=== PATIENT | female | born 1960 | race Caucasian/White ===

== ENCOUNTER 2024-06-14 12:09 | Outpatient (OUT) | payer MEDICARE, SELFPAY ==
--- NOTE | 2024-06-14 12:24 | ECG_ITS ---
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
--- NOTE | 2024-06-14 13:15 | P.GSHP_ITS ---
History of Present Illness History of Present Illness Chief complaint: LEFT ETD Narrative: Ms. Micheline German is a pleasant 64-year-old female who presents to presurgical testing for left eustachian tube dysfunction. She reports pressure to the left ear she is scheduled for left myringotomy with insertion of ventilation tube, T-tube with Dr. Dupont on June 28, 2023 Review of Systems ROS Narrative REVIEW OF SYSTEMS: Negative except as stated in HPI, ten or more systems reviewed. Constitutional: No fever, chills, weakness ENT: No sore throat or epistaxis complaints of pressure and pain to the left ear Cardiovascular: No edema, chest pain, palpitations, or activity intolerance Respiratory: No shortness of breath, cough, or wheezing Musculoskeletal: No joint pain or swelling Gastrointestinal: No abdominal pain, constipation, diarrhea, or vomiting Genitourinary: No dysuria or hematuria Neurological: No numbness, tingling, weakness, or headache Psychiatric: No mood changes PFSH PFSH Medical History (Updated 06/14/24 @ 13:18 by Jelena Milligan) Thoracic outlet syndrome ?G54.0 - Brachial plexus disorders (ICD-10) Fusion of spine ?M43.20 - Fusion of spine, site unspecified (ICD-10) Neck pain ?M54.2 - Cervicalgia (ICD-10) DDD (degenerative disc disease) Insomnia ?G47.00 - Insomnia, unspecified (ICD-10) Depression ?F32.A - Depression, unspecified (ICD-10) Anxiety ?F41.9 - Anxiety disorder, unspecified (ICD-10) Snores ?R06.83 - Snoring (ICD-10) Bronchitis ?J40 - Bronchitis, not specified as acute or chronic (ICD-10) Asthma ?J45.909 - Unspecified asthma, uncomplicated (ICD-10) Migraine ?G43.909 - Migraine, unspecified, not intractable, without status migrainosus (ICD-10) Acute otitis media ?H66.90 - Otitis media, unspecified, unspecified ear (ICD-10) Seasonal allergies ?J30.2 - Other seasonal allergic rhinitis (ICD-10) Heartburn ?R12 - Heartburn (ICD-10) GERD (gastroesophageal reflux disease) ?K21.9 - Gastro-esophageal reflux disease without esophagitis (ICD-10) Hypertension ?I10 - Essential (primary) hypertension (ICD-10) High cholesterol ?E78.00 - Pure hypercholesterolemia, unspecified (ICD-10) Diabetes ?E11.9 - Type 2 diabetes mellitus without complications (ICD-10) Delayed recovery from anesthesia Surgical History (Updated 06/14/24 @ 13:02 by Jelena Milligan) History of eye surgery ?Z98.890 - Other specified postprocedural states (ICD-10) History of esophagogastroduodenoscopy (EGD) ?Z98.890 - Other specified postprocedural states (ICD-10) History of colonoscopy ?Z98.890 - Other specified postprocedural states (ICD-10) History of cholecystectomy ?Z90.49 - Acquired absence of other specified parts of digestive tract (ICD- 10) History of foot surgery ?Z98.890 - Other specified postprocedural states (ICD-10) History of tonsillectomy ?Z90.89 - Acquired absence of other organs (ICD-10) History of myringotomy ?Z98.890 - Other specified postprocedural states (ICD-10) Family History (Updated 06/14/24 @ 12:53 by Jelena Milligan) Other Family history of Alzheimer's disease Family history of COPD (chronic obstructive pulmonary disease) Family history of cancer Family history of coronary artery disease Family history of diabetes mellitus Family history of heart disease Family history of hypertension Family history of myocardial infarction Family history of stroke Family history of uterine cancer Meds Home Medications and Allergies Home Medications ?Medication ?Instructions ?Recorded ?Confirmed ?Type albuterol sulfate 90 mcg/actuation 1 puff inhalation Q4H PRN 06/14/24 06/14/24 History aerosol inhaler shortness of breath or wheezing duloxetine 60 mg capsule,delayed 60 mg PO DAILY 06/14/24 06/14/24 History release eszopiclone 3 mg tablet 3 mg PO BEDTIME 06/14/24 06/14/24 History fluticasone 500 mcg-salmeterol 50 1 inh inhalation Q12H PRN allergic 06/14/24 06/14/24 History mcg/dose blistr powdr for symptoms inhalation gabapentin 600 mg tablet 600 mg PO QID 06/14/24 06/14/24 History metformin 850 mg tablet 850 mg PO BEDTIME 06/14/24 06/14/24 History montelukast 10 mg tablet 10 mg PO DAILY 06/14/24 06/14/24 History omeprazole 40 mg capsule,delayed 40 mg PO DAILY 06/14/24 06/14/24 History release prazosin 1 mg capsule 2 mg PO BEDTIME 06/14/24 06/14/24 History propranolol 20 mg tablet 20 mg PO DAILY 06/14/24 06/14/24 History simvastatin 20 mg tablet 20 mg PO BEDTIME 06/14/24 06/14/24 History Allergies Allergy/AdvReac Type Severity Reaction Status Date / Time diclofenac (From Arthrotec) Allergy Intermediate syncope Verified 06/14/24 12:41 misoprostol (From Arthrotec) Allergy Intermediate syncope Verified 06/14/24 12:41 tizanidine (From Zanaflex) Allergy Intermediate syncope Verified 06/14/24 12:41 tramadol (From Ultram) Allergy Intermediate sycope Verified 06/14/24 12:41 Exam Narrative Exam Narrative: Nurses note and vital signs reviewed and patient is not hypoxic. General: The patient appears well and in no apparent distress. Patient is resting comfortably on cart. Skin: Warm, dry, no pallor noted. There is no rash noted. Head: Normocephalic, atraumatic Eye: Normal conjunctiva, no drainage, EOMI. PERRL Ears, Nose, Mouth, and Throat: oral mucosa is moist. Nares patent. Mouth without vesicles. Ear canals patent. Tympanic membrane without Erythema, notable left tympanic membrane retraction and effusion. Cardiovascular: Regular Rate and Rhythm Respiratory: Patient is in no distress, no accessory muscle use, lungs are clear to auscultation, no wheezing, rales or rhonchi Back: non-tender, no CVA tenderness bilaterally to percussion. GI: Normal bowel sounds, no tenderness to palpation, no masses appreciated. No rebound, guarding, or rigidity noted. Musculoskeletal: The patient has no evidence of calf tenderness, no pitting edema, symmetrical pulses noted bilaterally Neurological: A&O x4, normal speech Psychiatric: Cooperative Assessment and Plan Assessment and Plan (1) Dysfunction of left eustachian tube: Plan Plan is for left migraine got to me with insertion of ventilation tubes, T-tube with Dr. Dupont on June 28, 2023
[2024-06-14 13:41] LABS: Basophils Absolute Auto 0.1 10^3/uL (0.0-0.1); Basophils Percent Auto 0.9 % (0.2-2.0); Eosinophils Absolute Auto 0.4 10^3/uL (0.0-0.7); Eosinophils Percent Auto 5.5 % (0.9-7.0); Hematocrit 41.1 % (36.0-48.0); Hemoglobin 13.3 g/dL (12.0-16.0); Immature Granulocytes Abs Auto 0.01 10^3/uL (0.00-0.03); Immature Granulocytes Pct Auto 0.1 % (0.0-0.5); Lymphocytes Absolute Auto 2.8 10^3/uL (1.2-3.8); Lymphocytes Percent Auto 37.3 % (20.5-60.0); Mean Corpuscular HGB Conc 32.4 g/dL (29.9-35.2); Mean Corpuscular Hemoglobin 29.1 pg (26.7-34.0); Mean Corpuscular Volume 89.9 fL (81.0-99.0); Mean Platelet Volume 10.5 fL (9.5-13.5); Monocytes Absolute Auto 0.6 10^3/uL (0.3-0.8); Monocytes Percent Auto 7.8 % (1.7-12.0); Neutrophils Absolute Auto 3.6 10^3/uL (1.4-6.5); Neutrophils Percent Auto 48.4 % (43.0-75.0); Platelet Count 204 10^3/uL (150-450); Red Blood Count 4.57 10^6/uL (4.20-5.40); Red Cell Distribution Width 13.8 % (11.0-15.0); White Blood Count 7.4 10^3/uL (4.0-11.0)
[2024-06-14 13:58] LABS: BUN Creatinine Ratio 13.9; Calcium 9.3 mg/dL (8.5-10.1); Carbon Dioxide 29.3 mmol/L (21.0-32.0); Chloride 106 mmol/L (98-107); Estimated GFR (African America >60 (>=60 mL/min/1.73m^2); Estimated GFR (Non-African Ame >60 (>=60 mL/min/1.73m^2); Glucose 96 mg/dL (74-106); Potassium 4.3 mmol/L (3.5-5.1); Sodium 142 mmol/L (136-145)
== END 2024-06-14 12:10 | disposition home or self-care (01) ==
LOC: PST 12:14
PROVIDERS: Family Provider Internal Medicine; Visit Provider Otolaryngology
DX: Z01.810 Encounter for preprocedural cardiovascular examination (principal); Z01.812 Encounter for preprocedural laboratory examination; Z01.818 Encounter for other preprocedural examination; H69.92 Unspecified Eustachian tube disorder, left ear
CPT/HCPCS: 80048; 85025; 93005; G0463

== ENCOUNTER 2024-07-12 06:36 | Day surgery (SDC) | payer MEDICARE, SELFPAY ==
[2024-06-14 12:50] VITALS: BP 121/82; PULSE 69; TEMP 36.3; O2SAT 96; BMI 31.2
[2024-07-12] VITALS (12 sets, daily range): BP systolic 115–133; BP diastolic 85–99; PULSE 62–75; TEMP 36.2–36.4; O2SAT 92–96; BMI 31.2
--- NOTE | 2024-07-12 | OP_ITS ---
OPERATION DATE: 07/12/2024 SURGEON: Haylee Dupont M.D. PREOPERATIVE DIAGNOSIS: Left eustachian tube dysfunction. POSTOPERATIVE DIAGNOSIS: Left eustachian tube dysfunction. PROCEDURE: Left myringotomy and tube with microdissection, placement of a T- tube. ANESTHESIA: General LMA. COMPLICATIONS: None. FINDINGS: Left serous effusion. INDICATIONS: This 64-year-old woman presented with otitis media with effusion, unresponsive to aggressive medical management. PROCEDURE: Patient identified in the holding area and taken back to the OR where she was placed in the supine position. After induction of general anesthesia, the left ear was approached with the otomicroscope. Cerumen was cleaned from the canal using a cerumen curette and an anterior radial myringotomy was performed. A modified Mitul?s T-tube was folded, inserted through the myringotomy and opened in the middle ear using microdissection. Patient was then awakened and taken to the recovery room in good condition. HEMAL
--- OUTSIDE RECORDS SUMMARY | 2024-07-12 06:40 | XMS_ITS | CCD ---
Author Organization [facility] Care Team Providers Care Composition Siding Worker Name Role Phone Gibson, Meek W Unavailable Unavailable Garret, Meek W Unavailable Unavailable No Doctor Assigned, Nodr Unavailable Unavail able TIMMIS, DR TOMPKINS Consulting Unavailable TIMMIS, DR TOMPKINS Admitting Unavailable TIMMIS, DR TOMPKINS Attending Unavailable JUANCARLOS, JAMAL Consulting Unavailable TIMMIS, DR TOMPKINS Consulting Unavailable TIMMIS, DR TOMPKINS Admitting Unavailable TIMMIS, DR TOMPKINS Attending Unavailable ZIEBER, DR NYDIA Méndez Consulting Unavailable ROTHMANYUNI Consulting Unavailable JUANCARLOS, JAMAL Consulting Unavailable TIMMIS, DR TOMPKINS Consulting Unavailable TIMMIS, DR TOMPKINS Admitting Unavailable TIMMIS, DR TOMPKINS Attending Unavailable ESTHER FLOWERS Consulting Unavailable JUANCARLOS, JAMAL Consulting Unavailable PROVIDER, UNKNOWN Attending Unavailable PROVIDER, UNKNOWN Admitting Unavailable DASH REED Referring Unavailable Arian Bello MD, [facility] Primary Care Provider Ame Spaulding Primary Care Physician UnavailAme Liu Unavailable Unavailable Steven Herring Unavailable Arian Bello MD, [facility] Primary Care Provider Arian Bello MD, [facility] Primary Care Provider KATINA HOWARD Referring Unavailable KHORSAND JUANCARLOS, JAMAL Primary Care UnavailKATINA Brown Referring Unavailable KHORSAND JUANCARLOS, JAMAL Primary Care UnavailPAVAN Patricia Referring Unavailable STEVEN PINEDO Primary Care Unavailable YANET AHMADI Attending Unavailable STEVEN PINEDO Primary Care Unavailable DILAN SALCEDO Referring Unavailable KHORSAND JUANCARLOS, JAMAL Primary Care UnavailDILAN Cheney Referring Unavailable KHORSAND JUANCARLOS, JAMAL Primary Care UnavailPAVAN Patricia Attending Unavailable ROGELIO, PAVAN Attending Unavailable ROGELIO, PAVAN Attending Unavailable ROGELIO, PAVAN Attending Unavailable ROGELIO, PAVAN Attending Unavailable ARY, TIMUR Referring Unavailable STEVEN PINEDO Primary Care Unavailable Ary PROTOCOL MANAGER, Timur Unavailable Perfecto ARMSTRONG, Tee Unavailable TIMMIS, LEDA H Attending Unavailable TIMMIS, LEDA H Attending Unavailable TEE GROVE Referring Unavailable TIMMIS, LEDA H Attending Unavailable ARY, TIMUR Referring Unavailable TIMMIS, LEDA H Attending Unavailable TIMMIS, LEDA H Attending Unavailable TIMMIS, LEDA H Attending Unavailable Allergies Allergy Classification Reported Allergen(s) Allergy Type Date of Onset Reaction(s) Facility (3 sources) tiZANidine; Translations: [facility] traMADol; Translations: [Ultram] [facility]) Glutaral Drug Allergy [facility] Repository (20 sources) Diclofenac / miSOPROStol; Translations: [DICLOFENAC-MIS OPROSTOL] Drug Allergy 1 Other (See Comments) [facility] (20 sources) tiZANidine; Translations: [TIZANIDINE] Drug Allergy 1 Other (See Comments), Nausea And Vomiting, GI intolerance [facility] (20 sources) tiZANidine; Translations: [TIZANIDINE HCL] Drug Allergy 2 Other (See Comments) [facility] Repository (20 sources) traMADol; Translations: [TRAMADOL] Drug Allergy 1 Other (See Comments), Anaphylaxis [facility] [place] Repository (1 source) Diclofenac / miSOPROStol; Translations: [Arthrotec 50] Drug Allergy [facility] [employer] (2 sources) Diclofenac / miSOPROStol Drug Allergy Unknown [facility] Other Medications Current Medications Medication Drug Class(es) Dates Sig (Normalized) Sig (Original) Advair Diskus 500-50 MCG/DOSE (2 sources) take 1 puff(s) by inhalation twice daily Advair Diskus 500-50 MCG/DOSE 1 puff Inhalation Twice a day Active albuterol 0.83 mg/ml inhalation solution (7 sources) beta2-Adrenergic Agonist Start: 12-05-2021 albuterol (PROVENTIL) (2.5 MG/3ML) 0.083% nebulizer solution take 2 puff(s) by in halation every four hours as needed Ventolin HFA 108 (90 Base) MCG/ACT 2 puffs as needed Inhalation every 4 hrs Active ALPRAZolam 0.25 mg oral tablet (4 sources) Benzodiazepine take 1 tablet by mouth every eight hours Xanax 0.25 MG 1 tablet Orally Three times a day for 30 Not-Taking ALPRAZolam 0.25 MG (Schedule IV Drug) TAKE 1/2 TO 1 TABLET BY MOUTH EVERY 6-8 HOURS NEEDED Oral for 8 Active cyclobenzaprine hydrochloride 10 mg oral tablet (2 sources) Muscle Relaxant Flexeril 10mg 1 Oral 3 times daily Active diclofenac sodium 0.01 mg/mg topical gel (5 sources) Nonsteroidal Anti-inflammatory Drug Start: 11-23-19 diclofenac sodium (VOLTAREN) 1 % GEL APPLY 4 GRAMS TO AFFECTED AREA 4 TIMES A DAY 0 11/22/2021 Active doxepin hydrochloride 50 mg oral capsule (7 sources) Tricyclic Antidepressant Start: 11-25-19 22 take 1 capsule by mouth at bedtime doxepin (SINEQUAN) 50 MG capsule TAKE 1 CAPSULE BY MOUTH AT BEDTIME 0 11/24/2021 Active take 1-3 capsules by mouth at be dtime Doxepin HCl 25 MG TAKE 1 TO 3 CAPSULES BY MOUTH AT BEDTIME Oral for 30 Active DULoxetine 60 mg delayed release oral capsule (20 sources) Serotonin and Norepinephrine Reuptake Inhibitor take 1 capsule by mouth in the morning DULoxetine (Cymbalta) [address] capsule Take 60 mg by mouth in the morning. Active take 1 capsule by mouth twice da tawana DULoxetine HCl 60 MG TAKE ONE CAPSULE BY MOUTH TWICE A DAY Oral for 30 Active take 1 tablet by mouth once jorge y Cymbalta oral take 1 tablet by oral route daily (unsure of dose) eszopiclone 3 mg oral tablet (20 sources) Start: 12-17-2023 take 1 tablet by mouth at bedtime eszopiclone (Lunesta) 3 MG tablet Take 3 mg by mouth at bedtime 12/17/2023 Active fluticasone propionate 0.05 mg/actuat metered dose nasal spray (15 sources) Corticosteroid Start: 06-27-2024 fluticasone (Flonase) 50 MCG/ACT nasal spray Indications: ETD (Eustachian tube dysfunction), left 2 sprays on left BID. Shake gently. Before first use, prime pump. After use, clean tip and replace cap. 48 g 3 06/27/2024 Active Start: 06-27-2024 fluticasone (F lonase) 50 MCG/ACT nasal spray Indications: ETD (Eustachian tube dysfunction), left 2 sprays on left BID. Shake gently. Before first use, prime pump. After use, clean tip and replace cap. 48 g 3 06/27/2024 Active Start: 04-11-2024 End: 06-27-2024 fluticasone (Flonase) 50 MCG /ACT nasal spray Indications: ETD (Eustachian tube dysfunction), left 2 sprays to left nose twice daily. Shake gently. Before first use, prime pump. After use, clean tip and replace cap. 48 g 3 04/11/2024 06/27/2024 Discontinued Fluticasone Prop ionate 50 MCG/ACT SHAKE LQ AND U 2 SPRAYS IEN QD Nasal for 30 Active 60 actuat fluticasone propionate 0.5 mg/actuat / salmeterol 0.05 mg/actuat dry powder inhaler (20 sources) Corticosteroid, beta2-Adrenergic Agonist take 1 puff(s) by inhalation in the morning Fluticasone-Salmeterol 500-50 MCG/ACT aerosol powder Inhale 1 puff in the morning. Active Fluticasone-Salm eterol (Advair Diskus) 500-50 MCG/ACT aerosol powder 1 puff every 12 (twelve) hours Active folic acid 0.8 mg / vitamin b12 1 mg disintegrating oral tablet (20 sources) Vitamin B12 take 2 tablets by mouth in the morning Cobalamin Combinations (Vitamin P96-Kduyw Acid) 500-400 MCG tablet Take 2 tablets by mouth in the morning. Active take 1 tablet by mouth once jorge y vitamin B12 500 mcg-folic acid 400 mcg tablet take 1 tablet by oral route daily gabapentin 600 mg oral tablet (20 sources) Anti-epileptic Agent Start: 07-01-2022 take 1 tablet by mouth every eight hours Gabapentin 600 MG 1 tablet Orally three times a day for 30 days Jun, Active take 1 tablet by teetee th twice daily, then take 2 tablets by mouth at bedtime Gabapentin 600 MG TAKE 1 TABLET BY MOUTH TWICE A DAY AND 2 AT BEDTIME Oral for 30 Active take 1 tablet by mouth three edelmira es daily gabapentin oral 500 mg oral tablet take 1 tablet (600 mg) by oral route 3 times per day hydroCHLOROthiazide 12.5 mg oral tablet (6 sources) Thiazide Diuretic Start: 11-23-2021 take 1 tablet by mouth once daily in the morning hydroCHLOROthiazide (HYDRODIURIL) 12.5 MG tablet TAKE 1 TABLET BY MOUTH EVERY DAY IN THE MORNING FOR 90 DAYS 0 11/23/2021 Active metFORMIN hydrochloride 850 mg oral tablet (20 sources) Biguanide Start: 12-02-2021 take 1 tablet by mouth once daily at mealtime metFORMIN (GLUCOPHAGE) 850 MG tablet TAKE 1 TABLET BY MOUTH EVERY DAY WITH A MEAL FOR 90 DAYS 0 12/02/2021 Active take 1 tablet by mouth once jorge y metformin 500 mg tablet take 1 tablet (500 mg) by oral route daily milnacipran hydrochloride 50 mg oral tablet (7 sources) Serotonin and Norepinephrine Reuptake Inhibitor take 1 tablet by mouth once daily milnacipran HCl (SAVELLA) 50 MG TABS Take 50 mg by mouth daily. 0 Active take 1 tablet by mouth at bedtim e Savella 100 MG TAKE 1 TABLET BY MOUTH AT BEDTIME Oral for 30 Active montelukast 10 mg oral tablet (20 sources) Leukotriene Receptor Antagonist Start: 11-16-2021 take 1 tablet by mouth once daily montelukast (SINGULAIR) 10 MG tablet TAKE 1 TABLET BY MOUTH EVERY DAY 0 11/16/2021 Active MULTIPLE VITAMINS PO (20 sources) take 1 tablet by mouth once daily MULTIPLE VITAMINS PO Take 1 tablet by mouth 1 (one) time each day at the same time Active ofloxacin 3 mg/ml otic solution (7 sources) Quinolone Antimicrobial Start: 04-04-2024 End: 04-11-2024 ofloxacin (Floxin) 0.3 % otic solution Indications: ETD (Eustachian tube dysfunction), left Administer 6 drops into the left ear in the morning and 6 drops before bedtime. Do all this for 7 days. 10 mL 04/04/2024 04/11/2024 Active Start: 01-09-2024 End: 01-16-2024 ofloxacin (Floxin) 0.3 % dedrick c solution Indications: Acute otalgia, left Administer 4 drops into affected ear(s) in the morning and 4 drops in the evening and 4 drops before bedtime. Do all this for 7 days. 10 mL 01/09/2024 01/16/2024 Active omeprazole 40 mg delayed release oral capsule (20 sources) Proton Pump Inhibitor Start: 11-18-2021 omeprazole (PRILOSEC) 40 MG delayed release capsule OXcarbazepine 300 mg oral tablet (2 sources) Anti-epileptic Agent take 1 tablet by mouth twice daily OXcarbazepine 300 MG TAKE 1 TABLET BY MOUTH TWICE A DAY Oral for 30 Active prazosin 1 mg oral capsule (20 sources) alpha-Adrenergic Marybeth Start: 12-09-2023 take 1 capsule by mouth at bedtime prazosin (Minipress) 1 MG capsule Take 1 mg by mouth at bedtime 12/09/2023 Active take 1 capsule by mouth at bedti me Prazosin HCl 2 MG TAKE ONE CAPSULE BY MOUTH AT BEDTIME Oral for 30 Active predniSONE 20 mg oral tablet (2 sources) Start: 06-27-2024 End: 06-29-2024 take 1 tablet by mouth in the morning predniSONE (Deltasone) 20 MG tablet Indications: ETD (Eustachian tube dysfunction), left Take 1 tablet (20 mg) by mouth in the morning and 1 tablet (20 mg) before bedtime. Do all this for 2 days. 4 tablet 06/27/2024 06/29/2024 Active propranolol hydrochloride 20 mg oral tablet (20 sources) beta-Adrenergi c Marybeth take 10 mg by mouth in the morning propranolol (Inderal) 20 MG tablet Take 10 mg by mouth in the morning and 10 mg before bedtime. Active take 1 tablet by mouth twice jesse ly propranolol (INDERAL) 20 MG tablet Take 20 mg by mouth 2 times daily. 0 Active take 0.5 tablet by mouth twice d aily Propranolol HCl 20 MG 1/2 tablet Orally Twice a day Active QUEtiapine 100 mg oral tablet (4 sources) Atypical Antipsychotic take 1 tablet by mouth every twenty-four hours SEROquel 100 MG 1 tablet at bedtime Orally Once a day Active simvastatin 20 mg oral tablet (20 sources) HMG-CoA Reductase Inhibitor Start: 11-19-19 simvastatin (ZOCOR) 20 MG tablet take 1 tablet by mouth once jorge y simvastatin oral take 1 tablet by oral route daily (unsure of dose) topiramate 25 mg oral tablet (7 sources) take 1 tablet by teetee th three times daily topiramate (TOPAMAX) 25 MG tablet Take 25 mg by mouth 3 times daily. 0 Active take 1 capsule by mouth at bedti me Topiramate 25 MG TAKE ONE CAPSULE BY MOUTH AT BEDTIME Oral for 30 Active Completed/Discontinued Medications Medication Drug Class(es) Dates Sig (Normalized) Sig (Original) calcium carbonate 1500 mg oral tablet (1 source) take 1 tablet by mouth once daily Calcium 600 mg calcium (1,500 mg) tablet take 1 tablet by oral route daily gadoteridol (PROHANCE) injection 14 mL (1 source) Start: 10-01-2022 End: 10-01-2022 gadoteridol (PROHANCE) injection 14 mL Problems Active Problems Problem Classification Problem Date Documented Date Episodic/Chronic Allergic reactions (8 sources) Allergic bronchopulmonary aspergillosis; Translations: [Allergic bronchopulmonary aspergillosis] Onset: 05-30-2024 05-30-2024 Chronic Anxiety disorders (20 sources) Other specified anxiety disorders; Translations: [Anxiety] Onset: 12-25-2020 12-16-2021 Chronic Asthma (20 sources) Unspecified asthma, uncomplicated; Translations: [Mild persistent asthma] Onset: 04-11-2013 12-16-2021 Chronic Diabetes mellitus without complication (20 sources) Type 2 diabetes mellitus; Translations: [Type 2 diabetes mellitus without complications] Onset: 01-09-2024 01-09-2024 Chronic Diabetes mellitus without complication (1 source) Prediabetes Episodic Disorders of lipid metabolism (20 sources) Pure hypercholesterolemia, unspecified; Translations: [Hyperlipidemia] Onset: 06-09-2010 12-16-2021 Chronic Esophageal disorders (20 sources) Gastroesophageal reflux disease; Translations: [Gastro-esophageal reflux disease without esophagitis] Onset: 06-09-2010 12-16-2021 Chronic Esophageal disorders (2 sources) Esophagitis; Translations: [Esophagitis, other specified type] Episodic Essential hypertension (20 sources) Essential (primary) hypertension; Translations: [Hypertensive disorder] Onset: 12-17-2020 Chronic Heart valve disorders (20 sources) Mitral valve prolapse; Translations: [Nonrheumatic mitral (valve) prolapse] Onset: 06-09-2010 12-16-2021 Chronic Mood disorders (20 sources) Severe major depression, single episode; Translations: [Major depressive disorder, single episode, severe without psychotic features] Onset: 06-09-2010 12-16-2021 Chronic Osteoarthritis (20 sources) Osteoarthritis; Translations: [Unspecified osteoarthritis, unspecified site] Onset: 12-16-2021 12-16-2021 Chronic Osteoporosis (20 sources) Osteoporosis; Translations: [Age-related osteoporosis without current pathological fracture] Onset: 12-16-2021 12-16-2021 Chronic Other aftercare (1 source) 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; Translations: [OTH STRAIGHTENER GUN PARTS CURRENT DRUG THERAPY] Onset: 01-05-2021 Episodic Other connective tissue disease (2 sources) Muscle pain; Translations: [Fibromyalgia NOS] Episodic Other connective tissue disease (2 sources) Fibromyalgia; Translations: [Fibromyalgia] Episodic Other connective tissue disease (2 sources) Lateral epicondylitis of right humerus; Translations: [Lateral epicondylitis, right elbow] Episodic Other ear and sense organ disorders (20 sources) Conductive hearing loss; Translations: [Conductive hearing loss, unspecified] Onset: 09-21-2011 12-16-2021 Chronic Other ear and sense organ disorders (8 sources) Bilateral hearing loss; Translations: [Conductive hearing loss, unilateral, left ear with restricted hearing on the contralateral side] Onset: 05-30-2024 05-30-2024 Chronic Other ear and sense organ disorders (1 source) Unspecified myringitis, left ear; Translations: [UNSPECIFIED MYRINGITIS LEFT EAR] Onset: 12-25-2020 Episodic Other ear and sense organ disorders (2 sources) Impacted cerumen in right ear; Translations: [Impacted cerumen, right ear] 04-04-2024 Episodic Other ear and sense organ disorders (8 sources) Otalgia, left ear; Translations: [Otalgia, unspecified] Onset: 05-30-2024 05-30-2024 Episodic Other injuries and conditions due to external causes (1 source) Foreign body in left ear, initial encounter; Translations: [FOREIGN BODY LT EAR INITIAL ENCNTR] Onset: 01-05-2021 Episodic Other injuries and conditions due to external causes (4 sources) Foreign body in left ear; Translations: [Foreign body in left ear, initial encounter] 01-17-2024 Episodic Other liver diseases (1 source) Fatty (change of) liver, not elsewhere classified Chronic Other nervous system disorders (20 sources) Spinal cord disease; Translations: [Disease of spinal cord, unspecified] Onset: 07-02-2019 12-16-2021 Chronic Other nervous system disorders (20 sources) Brachial plexus disorder; Translations: [Brachial plexus disorders] Onset: 06-09-2010 Chronic Other nervous system disorders (2 sources) Complex regional pain syndrome type I of right upper limb; Translations: [Complex regional pain syndrome I of right upper limb] Chronic Other nervous system disorders (1 source) Brachial plexus disorders; Translations: [Brachial plexus disorders] Onset: 10-01-2022 Chronic Other nervous system disorders (1 source) Complex regional pain syndrome I of right upper limb; Translations: [Complex regional pain syndrome i of right upper limb] Onset: 10-01-2022 Chronic Other nervous system disorders (20 sources) Complex regional pain syndrome of upper limb; Translations: [Complex regional pain syndrome I of unspecified upper limb] Onset: 06-09-2010 01-09-2024 Chronic Other screening for suspected conditions (not mental disorders or infectious disease) (17 sources) Encounter for screening mammogram for malignant neoplasm of breast; Translations: [Patient encounter status] Onset: 03-21-2024 05-30-2024 Episodic Other skin disorders (1 source) Other seborrheic keratosis Onset: 01-11-2022 Episodic Otitis media and related conditions (13 sources) Other specified disorders of Eustachian tube, left ear; Translations: [Unspecified Eustachian tube disorder, left ear] Onset: 12-23-2020 Episodic Residual codes; unclassified (2 sources) Insomnia; Translations: [Insomnia] Episodic Screening and history of mental health and substance abuse codes (1 source) Personal history of nicotine dependence; Translations: [PERSONAL HISTORY OF NICOTINE DEPEND] Onset: 12-25-2020 Episodic Spondylosis; intervertebral disc disorders; other back problems (20 sources) Cervical disc disorder; Translations: [Other cervical disc degeneration, unspecified cervical region] Onset: 06-09-2010 Resolved: 01-09-2024 Chronic Sprains and strains (12 sources) Cervical spine sprain; Translations: [Sprain of ligaments of cervical spine, initial encounter] Onset: 10-01-2022 Episodic Superficial injury; contusion (3 sources) Metal foreign body in ear region; Translations: [Superficial foreign body of unspecified ear, initial encounter] Onset: 10-01-2022 Episodic Unclassified (1 source) CONTACT W/AND (SUSP) EXPOS COVID-19; Translations: [CONTACT W/AND (SUSP) EXPOS COVID-19] Onset: 12-25-2020 Unclassified (2 sources) PRE MRI LAB; Translations: [PRE MRI LAB] Onset: 10-01-2022 Past or Other Problems Problem Classification Problem Date Documented Da te Episodic/Chronic Other connective tissue disease (2 sources) Fibromyalgia; Translations: [FIBROMYALGIA] Onset: 12-25-2020 Episodic Other connective tissue disease (20 sources) Primary fibromyalgia syndrome; Translations: [Fibromyalgia] Onset: 06-09-2010 12-16-2021 Episodic Other connective tissue disease (1 source) Lateral epicondylitis, right elbow; Translations: [Lateral epicondylitis, right elbow] Onset: 10-01-2022 Episodic Other connective tissue disease (20 sources) Lateral epicondylitis; Translations: [Lateral epicondylitis, unspecified elbow] Onset: 06-09-2010 01-09-2024 Episodic Other connective tissue disease (20 sources) History of cervical spine fusion; Translations: [Arthrodesis status] Onset: 07-02-2019 Resolved: 01-09-2024 01-09-2024 Episodic Other ear and sense organ disorders (2 sources) Pain of ear structure; Translations: [Otalgia, left ear] 01-09-2024 Episodic Other non-traumatic joint disorders (2 sources) Pain in right shoulder; Translations: [Pain in right shoulder] Onset: 11-23-2022 Episodic Results Test Name Value Interpretation Reference Range Facility ECG 12-LEADon 06-15-[address] [address] Electrocardiograph Report Signed Patient: MICHELINE MOLINA MR#: [id number] : 1960 Acct:[id number] Age/Sex: 64 / F ADM Date: 06/14/24 Loc: PST Attending Dr: Leda Cuellar M.D. Ordering Physician: Leda Cuellar M.D. Date of Service: 06/14/24 Procedure(s): ECG 12 lead Accession Number(s): [id number] cc: [facility] Test Date: 2024-06-14 Pat Name: MICHELINE MOLINA Department: Room: - Gender: Female Attenuator: : 1960 Requested By: LEDA CUELLAR Order Number: [id number] Reading MD: TYSON FERMIN Measurements Intervals Carter Rate: 61 P: -4 GA: 181 QRS: -1 QRSD: 90 T: 54 QT: 398 QTc: 401 Interpretive Statements SINUS RHYTHM NONSPECIFIC T-WAVE ABNORMALITY Electronically Signed On 06-15-2024 7:08:33 EST by TYSON FERMIN Dictated By: Tyson Fermin D.O. Signed By: 06/15/24 0708 DD/ 1314 TD/TT: Core Winding Operator: [facility] Radiology, Radiologist, MD - 06/15/2024 [place] [address] Electrocardiograph Report Signed Patient: MICHELINE MOLINA MR#: [id number] : 1960 Acct:[id number] Age/Sex: 64 / F ADM Date: 06/14/24 Loc: PST Attending Dr: Leda Cuellar M.D. Ordering Physician: Leda Cuellar M.D. Date of Service: 06/14/24 Procedure(s): ECG 12 lead Accession Number(s): [id number] cc: [facility] Test Date: 2024-06-14 Pat Name: MICHELINE MOLINA Department: Room: - Gender: Female Attenuator: : 1960 Requested By: LEDA CUELLAR Order Number: [id number] Reading MD: TYSON FERMIN Measurements Intervals Carter Rate: 61 P: -4 GA: 181 QRS: -1 QRSD: 90 T: 54 QT: 398 QTc: 401 Interpretive Statements SINUS RHYTHM NONSPECIFIC T-WAVE ABNORMALITY Electronically Signed On 06-15-2024 7:08:33 EST by TYSON FERMIN Dictated By: Tyson Fermin D.O. Signed By: 06/15/24 0708 DD/ 1314 TD/TT: Core Winding Operator: [facility] ECG 12-LEADOrdered By: Radio logist Radiology on 06-15-2024 [facility] Work Phone: ALL CBC WITH AUTO DIFFon BASOPHILS ABSOLUTE AUTO 0.1 [facility] Basophils/100 WBC (Bld) 0.9 % 0.2 - 2.0 % [facility] Eosinophils/100 WBC (Bld) 5.5 % 0.9 - 7.0 % [facility]th[facility] width (RBC) [Ratio] 13.8 % 11.0 - 15.0 % [facility] Hematocrit (Bld) [Volume fraction] 41.1 % 36.0 - 48.0 % [facility] Hemoglobin (Bld) [Mass/Vol] 13.3 g/dL 12.0 - 16.0 g/dL [facility] IMMATURE GRANULOCYTES ABS AUTO 0.01 [facility] Immature granulocytes/100 WBC (Bld) 0.1 % 0.0 - 0.5 % [facility] LYMPHOCYTES ABSOLUTE AUTO 2.8 [facility] Lymphocytes/100 WBC (Bld) 37.3 % 20.5 - 60.0 % [facility] MCH (RBC) [Entitic mass] 29.1 pg 26.7 - 34.0 pg [facility] MCHC (RBC) [Mass/Vol] 32.4 g/dL 29.9 - 35.2 g/dL [facility] MCV (RBC) [Entitic vol] 89.9 fL 81.0 - 99.0 fL [facility] MONOCYTES ABSOLUTE AUTO 0.6 [facility] Monocytes/100 WBC (Bld) 7.8 % 1.7 - 12.0 % [facility] NEUTROPHILS ABSOLUTE AUTO 3.6 [facility] Neutrophils/100 WBC (Bld) 48.4 % 43.0 - 75.0 % [facility] Platelet mean volume (Bld) [Entitic vol] 10.5 fL 9.5 - 13.5 fL [facility] EO # 0.4 [facility] PLT 204 [facility] RBC 4.57 [facility] WBC 7.4 [facility] ECG 12-LEADon 06-14-2024 Radiology Study observation (narrative) [facility] MAMM SCREENING BILATERAL W C preparer making department 03-22-2024 MAMM SCREENING BILATERAL W CAD MAMM SCREENING BILATERAL W CAD MICHELINE MOLINA 1960 [id number] EXAM: MAMM SCREENING BILATERAL W CAD, 03/21/2024 11:29 AM CLINICAL INDICATIONS: Screening, Visit for screening mammogram COMPARISON: 10/12/2021 TECHNIQUE: Bilateral digital tomosynthesis MLO and CC views of the breasts were obtained, with creation of synthetic 2D views. Computer aided detection was utilized. FINDINGS: There are scattered areas of fibroglandular density. There are no suspicious masses, calcifications, or areas of architectural distortion. IMPRESSION: No mammographic evidence of malignancy. BI-RADS: BI-RADS 1 - Negative RECOMMENDATION: Routine screening mammogram in 1 year. RISK ASSESSMENT: TC Lifetime risk: 4.37%. The patient's reported personal and family medical history was used calculate their Tyrer-Cuzick lifetime risk of malignancy. Scores less than 20% are not considered high risk per ACR guidelines and patient should continue with the above recommendation. Finalized by Deon Rodriguez MD on 03/22/2024 9:52 AM 1 b MAMM 1 YR Normal [facility] Procedure Visiton 05-30-2023 Procedure Visit [id number] Micheline Molina 1960 Provider Department Center 05/30/2023 PAVAN ARAUJO MP ORTHO MPORTHO No family history on file Level of Service:69741 [place] OFFICE/OUTPATIENT ESTABLISHED LOW MDM 20 MIN (25) Reason for Visit and Comments: Pain [136] Normal [facility] 36on 05-09-2023 36 LVM to call back and set up appt Normal [facility] 36 BWC Right shoulder CSI injection approval in chart. Please call patient and schedule her an appointment before 06/24/2023 Normal [facility] Office Visiton 04-19-2023 Follow-up visit [id number] Micheline Molina 1960 Date Provider Department Center 04/19/2023 PAVAN ARAUJO MP ORTHO MPORTHO No family history on file Level of Service:87824 [place] OFFICE/OUTPATIENT ESTABLISHED LOW MDM 20 MIN (GC) Reason for Visit and Comments: Follow-up [[id number]] Normal [facility] MRI SHOULDER RIGHT WO JERAMIE Thomas 03-22-2023 MRI SHOULDER RIGHT WO CONTRAST EXAMINATION: MRI OF THE RIGHT SHOULDER WITHOUT CONTRAST 03/22/2023 8:38 am TECHNIQUE: Multiplanar multisequence MRI of the right shoulder was performed without the administration of intravenous contrast. COMPARISON: Right shoulder radiographs from 02/22/2023. HISTORY: ORDERING SYSTEM PROVIDED HISTORY: Sprain of right shoulder, unspecified shoulder sprain type, initial encounter 63-year-old female with right shoulder sprain. FINDINGS: ROTATOR CUFF: Small amount of fluid in the subacromial-subdeltoi d bursa. Low-grade multifocal partial-thickness interstitial and articular-surface tearing of supraspinatus and infraspinatus between critical zone and footplate. Moderate underlying supraspinatus and infraspinatus tendinosis. Low-grade partial-thickness interstitial and articular surface tearing of the insertional fibers of subscapularis. Teres minor muscle/tendon appears grossly intact without evidence of tearing. No significant atrophy or fatty degeneration of the visualized rotator cuff musculature. BICEPS TENDON: Mild tendinosis of the intra-articular long head of the biceps tendon. LABRUM: Mild diffuse labral degeneration. No paralabral cyst formation. GLENOHUMERAL JOINT: Mild glenohumeral chondromalacia. Small glenohumeral joint effusion. Thickening of the inferior glenohumeral ligament. AC JOINT AND ACROMIOCLAVICULAR ARCH: Mild degenerative change of the right AC joint. Type 2 acromion. BONE MARROW: Marrow edema along the anterior and lateral humeral head. Nondisplaced fracturing of the greater tuberosity not excluded. No dislocation. OUTLET SPACES: Suprascapular notch and quadrilateral space grossly unremarkable in appearance. No right axillary lymphadenopathy. IMPRESSION: 1. Marrow edema at the humeral head likely posttraumatic with nondisplaced fracturing of the greater tuberosity not excluded. 2. Low-grade multifocal partial-thickness interstitial and articular-surface tearing of supraspinatus and infraspinatus between critical zone and footplate with moderate underlying supraspinatus and infraspinatus tendinosis. 3. Low-grade partial-thickness interstitial and articular surface tearing of the insertional fibers of subscapularis. 4. Mild tendinosis of the intra-articular long head of biceps tendon. 3 mild diffuse labral degeneration. Mild glenohumeral chondromalacia. 5. Thickening of the inferior glenohumeral ligament which can be seen with adhesive capsulitis. Small glenohumeral joint effusion. 6. Mild degenerative change of the right AC joint. Interpreted by: Herber Tellez MD Signed by: Herber Tellez MD 03/22/23 Final result Normal [facility] Follow-Upon 03-08-2023 Follow-Up [id number] MaxiMicheline 1960 F Date Provider Department Center 03/08/2023 PAVAN ARAUJO ORTHO MPORTHO No family history on file Level of Service:98559 [place] OFFICE/OUTPATIENT ESTABLISHED LOW [facility] 20-29 MIN Reason for Visit and Comments: Pain [136] Normal [facility] XR HUMERUS RIGHT (MIN 2 VIEW S)on 02-22-2023 XR HUMERUS RIGHT (MIN 2 VIEWS) EXAMINATION: TWO XRAY VIEWS OF THE RIGHT SHOULDER; TWO XRAY VIEWS OF THE RIGHT HUMERUS 02/22/2023 12:49 pm COMPARISON: None. HISTORY: ORDERING SYSTEM PROVIDED HISTORY: fall, pain TECHNOLOGIST PROVIDED HISTORY: fall, pain; ORDERING SYSTEM PROVIDED HISTORY: pain TECHNOLOGIST PROVIDED HISTORY: pain FINDINGS: Shoulder: The glenohumeral and acromioclavicular joints are maintained. No acute osseous abnormality or malalignment identified. The visualized lung aguayo reveal no acute abnormality. Surgical clips project over the right chest. Humerus: No fracture or malalignment identified. The joint spaces are maintained. No discrete soft tissue abnormality identified. IMPRESSION: No acute abnormality or malalignment identified involving the right shoulder or humerus. Interpreted by: Bashir Dominguez MD Signed by: Bashir Dominguez MD 02/22/23 Final result Normal [facility] XR SHOULDER RIGHT (MIN 2 VIE WS)on 02-22-2023 XR SHOULDER RIGHT (MIN 2 VIEWS) EXAMINATION: TWO XRAY VIEWS OF THE RIGHT SHOULDER; TWO XRAY VIEWS OF THE RIGHT HUMERUS 02/22/2023 12:49 pm COMPARISON: None. HISTORY: ORDERING SYSTEM PROVIDED HISTORY: fall, pain TECHNOLOGIST PROVIDED HISTORY: fall, pain; ORDERING SYSTEM PROVIDED HISTORY: pain TECHNOLOGIST PROVIDED HISTORY: pain FINDINGS: Shoulder: The glenohumeral and acromioclavicular joints are maintained. No acute osseous abnormality or malalignment identified. The visualized lung aguayo reveal no acute abnormality. Surgical clips project over the right chest. Humerus: No fracture or malalignment identified. The joint spaces are maintained. No discrete soft tissue abnormality identified. IMPRESSION: No acute abnormality or malalignment identified involving the right shoulder or humerus. Interpreted by: Bashir Dominguez MD Signed by: Bashir Dominguez MD 02/22/23 Final result Normal [facility] XR WRIST RIGHT (MIN 3 VIEWS) on 02-22-2023 XR WRIST RIGHT (MIN 3 VIEWS) EXAMINATION: 3 XRAY VIEWS OF THE RIGHT WRIST 02/22/2023 12:49 pm COMPARISON: None. HISTORY: ORDERING SYSTEM PROVIDED HISTORY: pain TECHNOLOGIST PROVIDED HISTORY: pain FINDINGS: No fracture or malalignment identified. Mild degenerative change in the triscaphe joint with subchondral cyst formation in the distal scaphoid. Mild joint space narrowing in the radiocarpal compartment. No discrete soft tissue abnormality identified. IMPRESSION: Mild degenerative change in the wrist. No acute osseous abnormality identified. Interpreted by: Bashir Dominguez MD Signed by: Bashir Dominguez MD 02/22/23 Final result Normal [facility] Follow-Upon 02-01-2023 Follow-Up [id number] Micheline Molina 1960 Date Provider Department Center 02/01/2023 PAVAN ARAUJO MP No family history on file Level of Service:38759 [place] OFFICE/OUTPATIENT ESTABLISHED LOW [facility] 20-29 MIN (25) Reason for Visit and Comments: Follow-up [128886] - [facility] - pt states she had covid over the labor day weekend and was pretty sick. Pain [136] - [facility] - pt states she had covid over the labor day weekend and was pretty sick. Normal [facility] Office Visiton 11-23-2022 Follow-up visit [id number] Micheline Molina 1960 F Date Provider Department Center 11/23/2022 PAVAN ARAUJO MP No family history on file Level of Service:79180 [place] OFFICE/OUTPATIENT NEW MODERATE MDM 45-59 MINUTES Reason for Visit and Comments: Pain [136] Normal [facility] MRI CERVICAL SPINE W WO CONT Zena 10-05-2022 MRI CERVICAL SPINE W WO CONTRAST EXAMINATION: MRI OF THE CERVICAL SPINE WITHOUT AND WITH CONTRAST 10/01/2022 9:16 am: TECHNIQUE: Multiplanar multisequence MRI of the cervical spine was performed without and with the administration of intravenous contrast. COMPARISON: None. HISTORY: ORDERING SYSTEM PROVIDED HISTORY: Brachial plexus lesions TECHNOLOGIST PROVIDED HISTORY: STAT Creatinine as needed:->No What is the sedation requirement?->None FINDINGS: BONES/ALIGNMENT: Cervical spine alignment and vertebral body heights are normal. No concerning marrow signal abnormality is present. There is no abnormal enhancement. There has been prior bony fusion across the C5-6 disc space. SPINAL CORD: No abnormal cord signal is seen. SOFT TISSUES: No abnormal enhancement of the cervical spine. No paraspinal mass identified. C2-C3: There is no significant disc protrusion, spinal canal stenosis or neural foraminal narrowing. C3-C4: Mild disc space narrowing, posterior disc bulge and facet hypertrophy. Mild right foraminal stenosis. C4-C5: Moderate disc space narrowing with mild posterior disc bulge and facet hypertrophy. Bilateral foraminal stenosis moderate on the right and moderate/severe on the left. C5-C6: Fused. No stenosis. C6-C7: Moderate disc space narrowing with mild posterior disc bulge more prominent to the left. Moderate/severe left foraminal stenosis. C7-T1: Moderate disc space narrowing with mild posterior disc bulge and facet hypertrophy. Moderate left foraminal stenosis. IMPRESSION: No acute cervical spine abnormality. Status post bony fusion across the C5-6 disc space. Diffuse cervical spine degenerative changes with foraminal stenosis as detailed above at C3-4, C4-5, C6-7 and C7-T1. Interpreted by: Deuce Rothman MD Signed by: Deuce Rothman MD 10/05/22 Final result Normal [facility] Creatinineon 10-01-2022 Creatinine [Mass/Vol] 0.68 mg/dL 0.50 - 0.90 mg/dL [facility] GFR/1.73 sq M.predicted MDRD (S/P/Bld) [Vol rate/Area] - PINF [facility] Comment on above: These results are not intended for use in patients <18 years of age. eGFR results are calculated without a race factor using the 2021 CKD-EPI equation. Careful clinical correlation is recommended, particularly when comparing to results calculated using previous equations. The CKD-EPI equation is less accurate in patients with extremes of muscle mass, extra-renal metabolism of creatine, excessive creatine ingestion, or following therapy that affects renal tubular secretion. [facility] Creatinine w/GFRon 3 Creatinine [Mass/Vol] 0.68 mg/dL Normal 0.50-0.90 [facility] Comment on above: Performed By: #### C REG #### [facility] [address] [place] [address] Injector Assembler: Pavan Walker MD GFR/1.73 sq M.predicted among non-blacks MDRD (S/P/Bld) [Vol rate/Area] mL/min/{1.73_m2} Normal >60 [facility] Comment on above: Result Comment: These results are not intended for use in patients <18 years of age. eGFR results are calculated without a race factor using the 2020 CKD-EPI equation. Careful clinical correlation is recommended, particularly when comparing to results calculated using previous equations. The CKD-EPI equation is less accurate in patients with extremes of muscle mass, extra-renal metabolism of creatine, excessive creatine ingestion, or following therapy that affects renal tubular secretion. Performed By: #### C REG #### [facility] [address] [place] [address] Injector Assembler: Pavan Walker MD [facility] RIGHT W WO CONTRAST EXAMINATION: MRI OF THE RIGHT SHOULDER WITHOUT AND WITH CONTRAST 10/01/2022 9:16 am TECHNIQUE: Multiplanar multisequence MRI of the right shoulder was performed without and with the administration of intravenous contrast. COMPARISON: None HISTORY: ORDERING SYSTEM PROVIDED HISTORY: Brachial plexus lesions TECHNOLOGIST PROVIDED HISTORY: STAT Creatinine as needed:->No What is the sedation requirement?->None 62-year-old female with right shoulder pain; fibromyalgia FINDINGS: ROTATOR CUFF: Small amount of fluid in the subacromial subdeltoid bursa. Low-grade multifocal partial-thickness articular-surface and interstitial tearing of mid and posterior supraspinatus and anterior infraspinatus between musculotendinous junction and footplate. Cxwy-uq-eqfyhxbm supraspinatus and moderate infraspinatus tendinosis. Low-grade partial-thickness interstitial and articular surface tearing of the insertional fibers of subscapularis. Teres minor muscle/tendon appear grossly intact without evidence of tearing. No significant atrophy or fatty degeneration of the visualized rotator cuff musculature. BICEPS TENDON: Interstitial tearing of the intra-articular long head of the biceps tendon near the biceps labral anchor. Long head of the biceps tendon properly located within the bicipital groove and seen extending to the biceps labral anchor. LABRUM: Mild diffuse labral degeneration. No discrete labral tear or paralabral cyst formation. GLENOHUMERAL JOINT: Glenohumeral articular cartilage is preserved. Inferior glenohumeral ligament appears intact. No sizable glenohumeral joint effusion. AC JOINT AND ACROMIOCLAVICULAR ARCH: Mild degenerative change of the right AC joint. Type 2 acromion. BONE MARROW: No acute fracture or dislocation. Bone marrow signal intensity grossly unremarkable. OUTLET SPACES: Suprascapular notch and quadrilateral space grossly unremarkable in appearance. No right axillary lymphadenopathy. No abnormal postcontrast enhancement identified. IMPRESSION: 1. Low-grade multifocal partial-thickness articular-surface and interstitial tearing of mid and posterior supraspinatus and anterior infraspinatus between musculotendinous junction and footplate. Mgvy-gi-xcsetuon supraspinatus and moderate infraspinatus tendinosis. 2. Low-grade partial-thickness interstitial and articular-surface tearing of the insertional fibers of subscapularis. 3. Interstitial tearing of the intra-articular long head of biceps tendon near the biceps labral anchor. 4. Mild diffuse labral degeneration. No discrete labral tear or paralabral cyst formation. 5. Mild degenerative change of the right AC joint. Interpreted by: Herber Tellez MD Signed by: Herber Tellez MD 10/01/22 Final result Normal [facility] 1. Low-grade multifocal partial-thickness articular-surface and interstitial tearing of mid and posterior supraspinatus and anterior infraspinatus between musculotendinous junction and footplate. Nuqe-uc-nxwttchy supraspinatus and moderate infraspinatus tendinosis. 2. Low-grade partial-thickness interstitial and articular-surface tearing of the insertional fibers of subscapularis. 3. Interstitial tearing of the intra-articular long head of biceps tendon near the biceps labral anchor. 4. Mild diffuse labral degeneration. No discrete labral tear or paralabral cyst formation. 5. Mild degenerative change of the right AC joint. [facility] RIS CONSOLIDATED EXAMINATION: MRI OF THE RIGHT SHOULDER WITHOUT AND WITH CONTRAST 10/01/2022 9:16 am TECHNIQUE: Multiplanar multisequence MRI of the right shoulder was performed without and with the administration of intravenous contrast. COMPARISON: None HISTORY: ORDERING SYSTEM PROVIDED HISTORY: Brachial plexus lesions TECHNOLOGIST PROVIDED HISTORY: STAT Creatinine as needed:->No What is the sedation requirement?->None 62-year-old female with right shoulder pain; fibromyalgia FINDINGS: ROTATOR CUFF: Small amount of fluid in the subacromial subdeltoid bursa. Low-grade multifocal partial-thickness articular-surface and interstitial tearing of mid and posterior supraspinatus and anterior infraspinatus between musculotendinous junction and footplate. Sdiu-ze-bsixbxsg supraspinatus and moderate infraspinatus tendinosis. Low-grade partial-thickness interstitial and articular surface tearing of the insertional fibers of subscapularis. Teres minor muscle/tendon appear grossly intact without evidence of tearing. No significant atrophy or fatty degeneration of the visualized rotator cuff musculature. BICEPS TENDON: Interstitial tearing of the intra-articular long head of the biceps tendon near the biceps labral anchor. Long head of the biceps tendon properly located within the bicipital groove and seen extending to the biceps labral anchor. LABRUM: Mild diffuse labral degeneration. No discrete labral tear or paralabral cyst formation. GLENOHUMERAL JOINT: Glenohumeral articular cartilage is preserved. Inferior glenohumeral ligament appears intact. No sizable glenohumeral joint effusion. AC JOINT AND ACROMIOCLAVICULAR ARCH: Mild degenerative change of the right AC joint. Type 2 acromion. BONE MARROW: No acute fracture or dislocation. Bone marrow signal intensity grossly unremarkable. OUTLET SPACES: Suprascapular notch and quadrilateral space grossly unremarkable in appearance. No right axillary lymphadenopathy. No abnormal postcontrast enhancement identified. [facility] RIS CONSOLID[facility] Herber Tellez MD - 10/01/2022 EXAMINATION: MRI OF THE RIGHT SHOULDER WITHOUT AND WITH CONTRAST 10/01/2022 9:16 am TECHNIQUE: Multiplanar multisequence MRI of the right shoulder was performed without and with the administration of intravenous contrast. COMPARISON: None HISTORY: ORDERING SYSTEM PROVIDED HISTORY: Brachial plexus lesions TECHNOLOGIST PROVIDED HISTORY: STAT Creatinine as needed:->No What is the sedation requirement?->None 62-year-old female with right shoulder pain; fibromyalgia FINDINGS: ROTATOR CUFF: Small amount of fluid in the subacromial subdeltoid bursa. Low-grade multifocal partial-thickness articular-surface and interstitial tearing of mid and posterior supraspinatus and anterior infraspinatus between musculotendinous junction and footplate. Wnfr-sp-rkmecddm supraspinatus and moderate infraspinatus tendinosis. Low-grade partial-thickness interstitial and articular surface tearing of the insertional fibers of subscapularis. Teres minor muscle/tendon appear grossly intact without evidence of tearing. No significant atrophy or fatty degeneration of the visualized rotator cuff musculature. BICEPS TENDON: Interstitial tearing of the intra-articular long head of the biceps tendon near the biceps labral anchor. Long head of the biceps tendon properly located within the bicipital groove and seen extending to the biceps labral anchor. LABRUM: Mild diffuse labral degeneration. No discrete labral tear or paralabral cyst formation. GLENOHUMERAL JOINT: Glenohumeral articular cartilage is preserved. Inferior glenohumeral ligament appears intact. No sizable glenohumeral joint effusion. AC JOINT AND ACROMIOCLAVICULAR ARCH: Mild degenerative change of the right AC joint. Type 2 acromion. BONE MARROW: No acute fracture or dislocation. Bone marrow signal intensity grossly unremarkable. OUTLET SPACES: Suprascapular notch and quadrilateral space grossly unremarkable in appearance. No right axillary lymphadenopathy. No abnormal postcontrast enhancement identified. IMPRESSION: 1. Low-grade multifocal partial-thickness articular-surface and interstitial tearing of mid and posterior supraspinatus and anterior infraspinatus between musculotendinous junction and footplate. Jytz-ws-rvrwecmc supraspinatus and moderate infraspinatus tendinosis. 2. Low-grade partial-thickness interstitial and articular-surface tearing of the insertional fibers of subscapularis. 3. Interstitial tearing of the intra-articular long head of biceps tendon near the biceps labral anchor. 4. Mild diffuse labral degeneration. No discrete labral tear or paralabral cyst formation. 5. Mild degenerative change of the right AC joint. [employer] Phone: Radiology Study observation (narrative) [employer] Phone: MRI SHOULDER RIGHT W WO CONT RASTOrdered By: Herber Tellez on 10-01-2022 [employer] Phone: XR SKULL (<4 VIEWS)on 2022 XR SKULL (<4 VIEWS) EXAMINATION: THREE XRAY VIEWS OF THE SKULL 10/01/2022 8:48 am COMPARISON: None. HISTORY: ORDERING SYSTEM PROVIDED HISTORY: MRI clearance, metal foreign body in ear region FINDINGS: Is the skull were performed. No orbital or skull metallic densities demonstrated. Dental amalgam. Soft tissues unremarkable. IMPRESSION: No concerning metallic densities of the skull. Interpreted by: Katina Howard DO Signed by: Katina Howard DO 10/01/22 Final result Normal [facility] No concerning metallic densities of the skull. [facility] CONSOLIDATED EXAMINATION: THREE XRAY VIEWS OF THE SKULL 10/01/2022 8:48 am COMPARISON: None. HISTORY: ORDERING SYSTEM PROVIDED HISTORY: MRI clearance, metal foreign body in ear region FINDINGS: Is the skull were performed. No orbital or skull metallic densities demonstrated. Dental amalgam. Soft tissues unremarkable. [facility] CONSOLID[facility] Katina Howard DO - 10/01/2022 EXAMINATION: THREE XRAY VIEWS OF THE SKULL 10/01/2022 8:48 am COMPARISON: None. HISTORY: ORDERING SYSTEM PROVIDED HISTORY: MRI clearance, metal foreign body in ear region FINDINGS: Is the skull were performed. No orbital or skull metallic densities demonstrated. Dental amalgam. Soft tissues unremarkable. IMPRESSION: No concerning metallic densities of the skull. [employer] Phone: [employer] Phone: Radiology Study observation (narrative) [facility] [employer] Phone: ASYMPTOMATIC COVID-19 ANTIGE Non 12-20-2020 EUA Statement SEE BELOW Normal [facility] Comment on above: Result Comment: This test has not been FDA cleared or approved, but has been authorized by the FDA under an Emergency Use Authorization (EUA) for use by authorized laboratories certified under CLIA that meet the requirements to perform moderate or high complexity testing. This test has been authorized only for the detection of proteins from SARS-CoV-2, not for any other viruses or pathogens. The emergency use of this test is authorized for the duration of the declaration that circumstances exist justifying the authorization of emergency use of in vitro diagnostic tests for detection and/or diagnosis of Covid-19 under section 564(b)(1) of the Act, 21 U.S.C. 360bbb-3(b)(1), unless the declaration is terminated or authorization is revoked sooner. Performed By: #### C VDAGA #### [facility] [address] [place] [address] Lindsey Diaz SARS-CoV-2 (COVID-19) RNA KIKO+probe Ql (Unsp spec) Negative Normal NEGATIVE [facility] Comment on above: Result Comment: Nega tive results are presumptive. They do not preclude infection and should not be used as the sole basis for treatment decisions. Additional confirmatory testing by a molecular method should be considered. Performed By: #### C VDAGA #### [facility] [address] [place] [address] Lindsey Diaz CBC AUTO DIFFon 12-17-2020 BASO # 0.1 103/ul Normal 0.0-0.1 [facility] Comment on above: Performed By: #### C BC #### [facility] [address] [place], [place] [id number] Lindsey Diaz Basophils/100 WBC (Bld) 0.9 % Normal 0.2-2.0 [facility] Comment on above: Performed By: #### C BC #### [facility] [address] [place], [place] [id number] Lindsey Emily EO # 0.5 103/ul Normal 0.0-0.7 [facility] Comment on above: Performed By: #### C BC #### [facility] [address] [place] [address] Lindsey Emily Eosinophils/100 WBC (Bld) 5.7 % Normal 0.9-7.0 [facility] Comment on above: Performed By: #### C BC #### [facility] [address] [place] [address] Lindsey Emily Erythrocyte distribution width (RBC) [Ratio] 13.8 % Normal 11.0-15.0 [facility] Comment on above: Performed By: #### C BC #### [facility] [address] [place] [address] Lindsey Emily Hematocrit (Bld) [Volume fraction] 46.3 % Normal 36.0-48.0 [facility] Comment on above: Performed By: #### C BC #### [facility] [address] [place] [address] Lindsey Emily Hemoglobin (Bld) [Mass/Vol] 15.2 g/dL Normal 12.0-16.0 [facility] Comment on above: Performed By: #### C BC #### [facility] [address] [place] [address] Lindsey Emily IG # 0.02 10e3/ul Normal 0.00-0.03 [facility] Comment on above: Performed By: #### C BC #### [facility] [address] [place] [address] Lindsey Emily IG % 0.3 % Normal 0.0-0.5 [facility] Comment on above: Performed By: #### C BC #### [facility] [address] [place] [address] Lindsey Emily LYMPH # 2.2 103/ul Normal 1.2-3.8 [facility] Comment on above: Performed By: #### C BC #### [facility] [address] [place] [address] Lindsey Emily Lymphocytes/100 WBC (Bld) 28.3 % Normal 20.5-60.0 [facility] Comment on above: Performed By: #### C BC #### [facility] [address] [place], [place] [id number] Lindsey Emily MANUAL DIFF REQ NO Normal [facility] Comment on above: Performed By: #### C BC #### [facility] [address] [place], [place] [id number] Lindseyomer Haqueen MCH (RBC) [Entitic mass] 31.1 pg Normal 26.7-34.0 [facility] Comment on above: Performed By: #### C BC #### [facility] [address] [place] [address] Lindseyomer Diaz MCHC (RBC) [Mass/Vol] 32.8 g/dL Normal 29.9-35.2 [facility] Comment on above: Performed By: #### C BC #### [facility] [address] [place] [address] Lindsey Emily MCV (RBC) [Entitic vol] 94.7 fL Normal 81.0-99.0 [facility] Comment on above: Performed By: #### C BC #### [facility] [address] [place] [address] Lindsey Emily MONO # 0.7 103/ul Normal 0.3-0.8 [facility] Comment on above: Performed By: #### C BC #### [facility] [address] [place] [address] Lindsey Emily Monocytes/100 WBC (Bld) 8.3 % Normal 1.7-12.0 [facility] Comment on above: Performed By: #### C BC #### [facility] [address] [place] [address] Lindsey Emily NEUT # 4.4 103/ul Normal 1.4-6.5 [facility] Comment on above: Performed By: #### C BC #### [facility] [address] [place] [address] Lindsey Emily Neutrophils/100 WBC (Bld) 56.5 % Normal 43.0-75.0 [facility] Comment on above: Performed By: #### C BC #### [facility] [address] [place], [place] [address] Lindsey Emily Platelet mean volume (Bld) [Entitic vol] 9.9 fL Normal 9.5-13.5 [facility] Comment on above: Performed By: #### C BC #### [facility] [address] [place] [address] Lindsey Emily PLT 248 103/ul Normal 150-450 [facility] Comment on above: Performed By: #### C BC #### [facility] [address] [place] [address] Lindsey Emily RBC 4.89 106/ul Normal 4.20-5.40 [facility] Comment on above: Performed By: #### C BC #### [facility] [address] [place] [address] Lindsey Emily WBC 7.8 103/ul Normal 4.0-11.0 [facility] Comment on above: Performed By: #### C BC #### [facility] [address] [place], [place] [id number] Lindsey Emily PROF CHEM 8 (BAS METB)on Anion gap [Moles/Vol] 12.7 mmol/L Normal [facility] Comment on above: Performed By: #### B MP #### [facility] [address] [place], [place] [id number] Lindsey Emily Calcium [Mass/Vol] 9.8 mg/dL Normal 8.4-10.2 [facility] Comment on above: Performed By: #### B MP #### [facility] [address] [place], [place] [id number] Lindsey Emily Chloride [Moles/Vol] 102 mmol/L Normal 98-107 [facility] Comment on above: Performed By: #### B MP #### [facility] [address] [place], [place] [id number] Lindsey Emily CO2 [Moles/Vol] 28.8 mmol/L Normal 22.0-30.0 [facility] Comment on above: Performed By: #### B MP #### [facility] [address] [place] [id number] Lindsey Emily Creatinine [Mass/Vol] 1.02 mg/dL Normal 0.52-1.04 [facility] Comment on above: Performed By: #### B MP #### [facility] [address] [place] [id number] Lindsey Emily EGFR-AF BELGIAN >60 Normal >=60 [facility] Comment on above: Performed By: #### B MP #### [facility] [address] [place] [id number] Lindsey Emily EGFR-NON AF BELGIAN 55 mL/min/1.73m2 Critically low >=60 [facility] Comment on above: Performed By: #### B MP #### [facility] [address] [place] [address] Lindsey Emily Glucose [Mass/Vol] 111 mg/dL Critically high 74-106 [facility] Comment on above: Performed By: #### B MP #### [facility] [address] [place] [address] Lindsey Emily Potassium [Moles/Vol] 4.5 mmol/L Normal 3.4-5.0 [facility] Comment on above: Performed By: #### B MP #### [facility] [address] [place] [id number] Lindsey Emily Sodium [Moles/Vol] 139 mmol/L Normal 137-145 [facility] Comment on above: Performed By: #### B MP #### [facility] [address] [place] [address] Lindsey Emily Urea nitrogen [Mass/Vol] 16.0 mg/dL Normal 7.0-17.0 [facility] Comment on above: Performed By: #### B MP #### [facility] [address] [place], [place] [id number] Lindsey Emily Urea nitrogen/Creatinine [Mass ratio] 15.7 mg/mg Normal [facility] Comment on above: Performed By: #### B MP #### [facility] [address] [id number] Lindsey Emily XR CHEST 2 Von 12-17-2020 XR CHEST 2 V EXAMINATION: XR CHES T 2 V HISTORY: Z01.818 ; presurgery testing, history of asthma COMPARISON: No relevant comparison available. FINDINGS: LUNGS: No significant pulmonary parenchymal abnormalities. VASCULATURE: No increased pulmonary vasculature. PLEURA: No pneumothorax, effusion, or pleural thickening. CARDIAC: No cardiomegaly or cardiac silhouette abnormality. MEDIASTINUM: No visible mass or adenopathy. BONES: No fracture or visible bone lesion. OTHER: Multiple surgical clips overlie the lower right neck, right upper chest, right axilla. IMPRESSION: No acute cardiopulmonary process or suspicious lung findings. Electronically authenticated by: NYDIA ARGUETA Date: 2020-12-17 12:51 Normal [facility] Vital Signs Date Time Vital Sign Value Performing Clinician Rafaelai kai 06-27-2024 11:21-0500 Body height 154.9 cm Leda Cuellar MD Work Phone: [facility] 06-27-2024 11:21-0500 Body mass index (BMI) [Ratio] 32.12 kg/m2 Leda Cuellar MD Work Phone: [facility] 06-27-2024 11:21-0500 Body weight 77.11 kg Leda Cuellar MD Work Phone: [facility] 06-27-2024 11:21-0500 Diastolic blood pressure 79 mm[Hg] Leda Cuellar MD Work Phone: [facility] 06-27-2024 11:21-0500 Heart rate 79 /min Leda Cuellar MD Work Phone: [facility] 06-27-2024 11:21-0500 Systolic blood pressure 108 mm[Hg] Leda Cuellar MD Work Phone: [facility] 05-30-2024 10:07-0500 Body height 154.9 cm Leda Cuellar MD Work Phone: [facility] 05-30-2024 10:07-0500 Body mass index (BMI) [Ratio] 32.12 kg/m2 Leda Cuellar MD Work Phone: [facility] 05-30-2024 10:07-0500 Body weight 77.11 kg Leda Cuellar MD Work Phone: [facility] 05-30-2024 10:07-0500 Diastolic blood pressure 73 mm[Hg] Leda Cuellar MD Work Phone: [facility] 05-30-2024 10:07-0500 Heart rate 74 /min Leda Cuellar MD Work Phone: [facility] 05-30-2024 10:07-0500 Systolic blood pressure 125 mm[Hg] Leda Cuellar MD Work Phone: [facility] 04-11-2024 09:02-0500 Body height 154.9 cm Leda Cuellar MD Work Phone: [facility] 04-11-2024 09:02-0500 Body mass index (BMI) [Ratio] 32.12 kg/m2 Leda Cuellar MD Work Phone: [facility] 04-11-2024 09:02-0500 Body weight 77.11 kg Leda Cuellar MD Work Phone: [facility] 04-11-2024 09:02-0500 Diastolic blood pressure 85 mm[Hg] Leda Cuellar MD Work Phone: [facility] 04-11-2024 09:02-0500 Systolic blood pressure 138 mm[Hg] Leda Cuellar MD Work Phone: [facility] 04-04-2024 09:20-0500 Body height 154.9 cm Leda Cuellar MD Work Phone: [facility] 04-04-2024 09:20-0500 Body mass index (BMI) [Ratio] 32.12 kg/m2 Leda Cuellar MD Work Phone: [facility] 04-04-2024 09:20-0500 Body weight 77.11 kg Leda Cuellar MD Work Phone: [facility] 04-04-2024 09:20-0500 Diastolic blood pressure 83 mm[Hg] Leda Cuellar MD Work Phone: [facility] 04-04-2024 09:20-0500 Systolic blood pressure 131 mm[Hg] Leda Cuellar MD Work Phone: [facility] 01-17-2024 08:51-0400 Body height 154.9 cm Leda Cuellar MD Work Phone: [facility] 01-17-2024 08:51-0400 Body mass index (BMI) [Ratio] 30.8 kg/m2 Leda Cuellar MD Work Phone: [facility] 01-17-2024 08:51-0400 Body weight 73.94 kg Leda Cuellar MD Work Phone: [facility] 01-17-2024 08:51-0400 Diastolic blood pressure 83 mm[Hg] Leda Cuellar MD Work Phone: [facility] 01-17-2024 08:51-0400 Systolic blood pressure 131 mm[Hg] Leda Cuellar MD Work Phone: [facility] 01-09-2024 11:13-0400 Body height 154.9 cm Leda Cuellar MD Work Phone: [facility] 01-09-2024 11:13-0400 Body mass index (BMI) [Ratio] 30.99 kg/m2 Leda Cuellar MD Work Phone: [facility] 01-09-2024 11:13-0400 Body weight 74.39 kg Leda Cuellar MD Work Phone: [facility] 01-09-2024 11:13-0400 Diastolic blood pressure 86 mm[Hg] Leda Cuellar MD Work Phone: [facility] 01-09-2024 11:13-0400 Systolic blood pressure 111 mm[Hg] Leda Cuellar MD Work Phone: [facility] Encounters Encounter Date Encounter Type Care Provider Facility Start: 06-27-2024 End: 06-27-2024 Bamboo flowsheet Leda Cuellar MD Work Phone: [facility] Start: 06-27-2024 End: 06-27-2024 Bamboo flowsheet Leda Cuellar MD Work Phone: [facility] Start: 06-27-2024 End: 06-27-2024 Office outpatient visit 25 minutes Leda Cuellar MD Work Phone: [facility] Comment on above: ETD (Eustachian tube dysfunction), left (Primary Dx) Start: 06-27-2024 End: 06-27-2024 ambulatory LEDA H TIMMIS Not Available Start: 06-22-2024 End: 06-22-2024 Telephone encounter Leda Cuellar MD Work Phone: [facility] Comment on above: Earache; ear pressur e,dizziness Start: 06-14-2024 End: 06-15-2024 Clinisync Result Encounter Leda Cuellar MD Work Phone: [facility] Unsolicited Start: 06-14-2024 End: 06-15-2024 Clinisync Result Encounter Leda Cuellar MD Work Phone: [facility] Unsolicited Start: 05-30-2024 End: 05-30-2024 Bamboo flowstessie Cuellar MD Work Phone: [facility] Start: 05-30-2024 End: 05-30-2024 Bamboo flowstessie Cuellar MD Work Phone: [facility] Start: 05-30-2024 End: 05-30-2024 Office outpatient visit 25 minutes Leda Cuellar MD Work Phone: [facility] Comment on above: ETD (Eustachian tube dysfunction), left (Primary Dx) Start: 05-30-2024 End: 05-30-2024 ambulatory LEDA H TIMMIS Not Available Start: 04-11-2024 End: 04-11-2024 Bamboo flowsheet Leda Cuellar MD Work Phone: [facility] Start: 04-11-2024 End: 04-11-2024 Bamboteresa flowstessie Cuellar MD Work Phone: [facility] Start: 04-11-2024 End: 04-11-2024 Office outpatient visit 15 minutes Leda Cuellar MD Work Phone: [facility] Comment on above: ETD (Eustachian tube dysfunction), left (Primary Dx); Foreign body of left ear, initial encounter Start: 04-11-2024 End: 04-11-2024 ambulatory LEDA CUELLAR Not Available Start: 04-04-2024 End: 04-04-2024 Bamboo flowstessie Cuellar MD Work Phone: [facility] Start: 04-04-2024 End: 04-04-2024 Bammarco Cuellar MD Work Phone: [facility] Start: 04-04-2024 End: 04-04-2024 Office outpatient visit 25 minutes Leda Cuellar MD Work Phone: [facility] Comment on above: ETD (Eustachian tube dysfunction), left (Primary Dx); Right ear impacted cerumen Start: 04-04-2024 End: 04-04-2024 ambulatory LEDA CUELLAR Not Available Start: 03-21-2024 End: 03-21-2024 ambulatory [facility] Start: 01-17-2024 End: 01-17-2024 Bamboo glenys Cuellar MD Work Phone: [facility] Start: 01-17-2024 End: 01-17-2024 Bamboo glenys Cuellar MD Work Phone: [facility] Start: 01-17-2024 End: 01-17-2024 ambulatory LEDA CUELLAR Not Available Start: 01-17-2024 End: 01-17-2024 Patient encounter procedure Leda Cuellar MD Work Phone: [facility] Comment on above: Foreign body of left ear, initial encounter (Primary Dx) Start: 01-09-2024 End: 01-09-2024 Bamboo flowsheet Leda Cuellar MD Work Phone: [facility] Start: 01-09-2024 End: 01-09-2024 Bamboo flowsheet Leda Cuellar MD Work Phone: [facility] Start: 01-09-2024 End: 01-09-2024 Office outpatient visit 15 minutes Leda Cuellar MD Work Phone: [facility] Comment on above: Acute otalgia, left (Primary Dx) Start: 01-09-2024 End: 01-09-2024 ambulatory LEDA CUELLAR Not Available Start: 05-30-2023 ambulatory [facility] Start: 04-19-2023 ambulatory [facility] Start: 03-22-2023 End: 03-25-2023 ambulatory [facility] Start: 03-08-2023 ambulatory [facility] Start: 02-22-2023 End: 02-22-2023 Emergency department patient visit YANET Matthews [facility] Start: 02-01-2023 ambulatory [facility] Start: 11-23-2022 End: 11-23-2022 ambulatory [facility] Start: 10-01-2022 End: 10-04-2022 ambulatory KATINA HOWARD [facility] Start: 10-01-2022 End: 10-03-2022 Subsequent hospital visit by physician [facility] Mri Scanner [facility] Comment on above: Brachial plexus lesi ons; Cervical spondylosis; Complex regional pain syndrome type 1 of right upper extremity; Degeneration of cervical intervertebral disc; Fibromyalgia; Lateral epicondylitis, right elbow; Other cervical disc displacement at C5-C6 level; Severe major depression, single episode (HCC); Sprain of ligaments of cervical spine, initial encounter; Unspecified sprain of right shoulder joint, initial encounter Metal foreign body i n ear region Start: 07-06-2022 End: 07-06-2022 ambulatory Steven Ashleysimona Other [facility] Other Start: 07-06-2022 Telephone encounter Steven SMITH [facility] Start: 07-01-2022 End: 07-01-2022 ambulatory Steven Ashleysimona Other [facility] Other Start: 07-01-2022 Office consultation new/estab patient 60 min Steven Herring [facility] [place] Start: 01-11-2022 Office outpatient ne w 20 minutes Ame Spaulding Other [facility] Office Start: 12-16-2021 End: 12-16-2021 Patient encounter procedure Jamal Bello MD Work Phone: [facility] Start: 12-16-2021 End: 12-16-2021 Subsequent hospital visit by physician Jamal Bello MD Work Phone: [facility] Comment on above: Women's annual routi ne gynecological examination Start: 12-25-2020 Encounter for preprocedural laboratory examination DR LEDA CUELLAR [facility] Start: 12-23-2020 End: 12-23-[address] LEDA CUELLAR Facility:[facility] Start: 12-20-2020 End: 12-21-[address] LEDA CUELLAR Facility:[facility] Start: 12-20-2020 End: 12-21-2020 Encounter for preprocedural laboratory examination DR LEDA CUELLAR Facility:[facility] Start: 12-17-2020 End: 12-18-[address] LEDA CUELLAR Facility:[facility] Start: 01-25-2019 End: 01-26-2019 ambulatory UNKNOWN PROVIDER Facility:[facility] Start: 10-18-2016 End: 10-18-2016 Emergency department patient visit Meek Combs Facility:[place] Procedures Date Procedure Procedure Detail Performing Clinician Start: 06-14-2024 ALL CBC WITH AUTO DIFF Leda Cuellar MD Work Phone: Start: 06-14-2024 ECG 12-LEAD Leda lam MD Work Phone: Start: 03-21-2024 Mammography Leda acuña MD Work Phone: Start: 10-01-2022 Mri any jt upper ext remity w/o & w/contr matrl Dilan Salcedo MD Work Phone: Start: 10-01-2022 Radiologic examinati on skull 4/> views Katina Howard DO Work Phone: Start: 10-01-2022 Creatinine blood Katinatyson Howard DO Work Phone: Start: 01-11-2022 Docrev cur meds by e lig clin Ame Spaulding Start: 12-16-2021 Microscopic observat ion [Identifier] in Cervix by Cyto stain Jamal Bello MD Work Phone: Start: 10-12-2021 Mammography Leda acuña MD Work Phone: Plan of Treatment Date Care Activity Detail Author Start: 12-16-2026 Screening for malign ant neoplasm [facility]ix [facility] Start: 03-21-2025 Screening for malign ant neoplasm of breast Mammogram [facility] Start: 12-16-2024 Screening for malign ant neoplasm of cervix Pap smear [facility] Start: 07-25-2024 End: 07-25-2024 Patient encounter procedure 07/25/2024 10:20 AM EDT Office Visit [facility] [address] [facility] [address] [place] [address] Leda Cuellar MD [address] [facility] [address] [place] [address] [facility] Start: 06-27-2024 End: 06-27-2024 Patient encounter procedure [facility] Comment on above: Arrived Start: 05-30-2024 End: 05-30-2024 Patient encounter procedure 05/30/2024 10:20 AM EST Office Visit [facility] [address] [place] [address] Leda Cuellar MD [address] [place] [address] Arrived [facility] Comment on above: Arrived Start: 05-15-2024 End: 05-15-2024 Patient encounter procedure 05/15/2024 2:30 PM EST Office Visit [facility] [address] [place] [address] Leda Cuellar MD [address] [place] [address] [facility] Start: 04-11-2024 End: 04-11-2024 Patient encounter procedure [facility] Comment on above: Arrived Start: 04-04-2024 End: 04-04-2024 Patient encounter procedure 04/04/2024 9:20 AM EST Office Visit [facility] [address] [place] [address] Leda Cuellar MD [address] [place] [address] Arrived [facility] Comment on above: Arrived Start: 01-17-2024 End: 01-17-2024 Patient encounter procedure 01/17/2024 8:40 AM EDT Office Visit [facility] [address] [place] [address] Leda Cuellar MD [address] [place] [address] [facility] Start: 01-09-2024 End: 01-09-2024 Patient encounter procedure 01/09/2024 11:10 AM EDT Office Visit [facility] [place] [address] [place] [address] Leda Cuellar MD [address] [place] [address] Arrived [facility] [place] Comment on above: Arrived Start: 10-17-2023 Screening for malign ant neoplasm of breast Breast cancer screen [facility] Start: 10-12-2022 Screening for malign ant neoplasm of breast Mammogram [facility] Start: 03-05-2022 COVID-19 Vaccine (2 - Pfizer series) COVID-19 Vaccine (2 - Pfizer series) [facility] Start: 12-31-2021 Influenza vaccination Flu vaccine (# 1) [facility] Start: 01-19-2010 Shingles vaccine (1 of 2) Shingles vaccine (1 of 2) [facility] Start: 01-19-2005 Screening for malign ant neoplasm of colon [facility] Start: 01-19-1995 Diabetes screen Diabetes screen [facility] Start: 01-19-1990 Screening for malign ant neoplasm of cervix [facility] Start: 01-19-1981 Screening for malign ant neoplasm of cervix Pap smear [facility] Start: 01-19-1979 DTaP/Tdap/Td vaccine (1 - Tdap) DTaP/Tdap/Td vaccine (1 - Tdap) [facility] Start: 01-19-1978 Hepatitis C screening Hepatitis C sc reen [facility] Start: 01-19-1975 HIV screening HIV screen [facility] Start: 1972 Depression Monitoring Depression Mon itoring [facility] Start: 1972 Depression Screen Depression Screen [facility] Start: 01-19-1970 Lipid panel Lipids [facility] Start: 01-19-1966 Pneumococcal 0-64 ye ars Vaccine (1 - PCV) Pneumococcal 0-64 years Vaccine (1 - PCV) [facility] Start: 1960 COVID-19 Vaccine (#1) COVID-19 Vacci ne (#1) [facility] Start: 1960 Screening for malign ant neoplasm of colon [facility] End: 12-16-2021 Cytopathology procedure, preparation of smear, genital source PAP SMEAR Lab Routine Women's Annual Routine Gynecological Examination 1 Occurrences starting 12/16/2021 until 12/16/[address] [facility] Work Phone: Comment on above: 1 Occurrences starti ng 12/16/2021 until 12/16/2021 End: 10-01-2022 MRI CERVICAL SPINE W WO CONTRAST SIMRAN HUNT [employer] Phone: Comment on above: 1 Occurrences starti ng 10/01/2022 until 10/01/2022 Immunizations Immunization Date Immunization Notes Care Provider Alexus corbett 01-11-2012 influenza, injectabl e, quadrivalent, contains preservative Steven Herring Other [facility] Other Payers Date Payer Category Payer Unknown [id number] 2022 Medicare [employer] MEDICARE ADVANTAGE HU[employer] MEDICARE [id number] 2022-Present [id number] [place] [id number] 2022 Medicare (Managed Care) [employer] EDICARE ADVANTAGE [id number] 2016 Private Health Insurance 1993 Unknown [id number] 1993 Unknown [id number] 1960 Unknown [id number] 2.16.840.1.124900.3.579. 2.593 1960 Unknown [id number] 2.16.840.1.297810.3.579. 2.593 1960 Unknown [id number] 2.16.840.1.154457.3.579. 2.593 1960 Unknown [id number] 2.16.840.1.254598.3.579. 2.732 1960 Unknown [id number] 2.16.840.1.324852.3.579. 2.173 1960 Unknown [id number] 2.16.840.1.028239.3.579. 2.173 1960 Unknown [id number] 2.16.840.1.769535.3.579. 2.173 1960 Unknown [id number] 2.16.840.1.399272.3.579. 2.173 1960 Unknown [id number] 2.16.840.1.158695.3.579. 2.173 1960 Unknown [id number] 2.16.840.1.637406.3.579. 2.173 1960 Unknown [id number] 2.16.840.1.591432.3.579. 2.1286 1960 Unknown [id number] 2.16.840.1.458675.3.579. 2.1259 1960 Unknown [id number] 2.16.840.1.322206.3.579. 2.1259 1960 Unknown [id number] 2.16.840.1.561895.3.579. 2.1259 1960 Unknown [id number] 2.16.840.1.694411.3.579. 2.1259 1960 Unknown [id number] 2.16.840.1.892726.3.579. 2.1259 1960 Unknown [id number] 2.16.840.1.836195.3.579. 2.1259 1959 Medicare [id number] Private Health Insurance [id number] Social History Date Type Detail Facility Start: 12-16-2021 Tobacco smoking status NHIS Ex-smoker [employer] Phone: History of tobacco use Current smoker [employer] Phone: Start: 12-16-2021 End: 01-09-2024 Tobacco use and exposure Smokeless tobacco non-user [employer] Phone: Start: 12-16-2021 End: 01-13-2022 Alcohol intake Current drinker of alcohol (finding) [employer] Phone: Start: 12-16-2021 History SDOH Alcohol Comment social [employer] Phone: Start: 1960 Sex Assigned At Not on file B ON [employer] Phone: Start: Former smoker [facility] Start: 01-17-2024 End: 05-30-2024 Sex Assigned At [facility] [employer] Other Start: 01-09-2024 Tobacco smoking status [facility] Never smoked tobacco [facility] Start: 01-17-2024 End: 04-11-2024 Alcoholic beverage intake Ex-drinker (finding) [facility] Start: 01-17-2024 End: 05-30-2024 History of Social function [facility] Tobacco smoking status [facility] Tobacco smoking consumption unknown [facility] Start: 05-30-2024 End: 06-27-2024 Alcoholic beverage intake Lifetime non-drinker (finding) [facility] Clinical Notes 12-23-2020 to 06-27-2024 Ldea Cuellar MD - 06/27/2024 11:30 AM ESTTelephone Encounter - Annika Cuellar - 06/22/2024 11:13 AM ESTTelephone Encounter - Annika Cuellar - 06/22/2024 11:13 AM EST Note Date & Type Note Facility 06-27-2024 History of Presen t illness Narrative Subjective Patient ID: Micheline Molina is a 64 y.o. female who presents for Ear Problem (Ear pain) Surgery moved to 07/12 (LT T-tube). Still having sx. No longer using flonase. Family History Problem Relation Name Age of Onset Heart failure Mother Chelsy Bonilla Diabetes Mother Chelsy Bonilla Cancer Mother Chelsy Bonilla COPD Mother Chelsy Bonilla Asthma Mother Chelsy Bonilla Hypertension Mother Chelsy Bonilla Migraines Mother Chelsy Bonilla Stroke Mother Chelsy Bonilla Hypertension Father Chris Moran Heart failure Father Chris Moran Cancer Brother Cancer Brother Peter Moran Hypertension Sister Yahaira Olivera Hypertension Brother Lester Moran Active Ambulatory Problems Diagnosis Date Noted Anxiety 12/16/2021 Asthma (CMS/HCC) 01/09/2024 Brachial plexus lesions 06/09/2010 Reflex sympathetic dystrophy of upper extremity 06/09/2010 Conductive hearing loss, unilateral 09/21/2011 Cervical spondylosis without myelopathy 06/09/2010 GERD (gastroesophageal reflux disease) 06/09/2010 Hyperlipidemia (CMS/HCC) 06/09/2010 Hypertension (CMS/HCC) 12/16/2021 Lateral epicondylitis 06/09/2010 Major depressive disorder, single episode, severe (HCC) (CMS/HCC) 06/09/2010 MVP (mitral valve prolapse) 06/09/2010 Myelopathy (CMS/HCC) 07/02/2019 Osteoarthritis 12/16/2021 Osteoporosis (CMS/HCC) 12/16/2021 Primary fibromyalgia syndrome 06/09/2010 Type 2 diabetes mellitus (CMS/HCC) 01/09/2024 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/2024 Asthma, mild persistent (CMS/HCC) 04/11/2013 Conductive hearing loss, unilateral, left ear with restricted hearing on the contralateral side 05/30/2024 Depression (CMS/HCC) 05/30/2024 Ear pain, left 05/30/2024 Encounter for screening mammogram for malignant neoplasm of breast 05/30/2024 Encounter for screening colonoscopy 05/30/2024 Resolved Ambulatory Problems Diagnosis Date Noted Degeneration of cervical intervertebral disc 06/09/2010 Displacement of cervical intervertebral disc without myelopathy 06/09/2010 S/P cervical spinal fusion 07/02/2019 Past Medical History: Diagnosis Date Dizziness Ear problems Headache HL (hearing loss) Past Surgical History: Procedure Laterality Date SECTION, LOW TRANSVERSE x2 CHOLECYSTECTOMY EYE SURGERY x3 FOOT SURGERY Right x2 SPINAL FUSION c5-6 THORACIC OUTLET SURGERY TONSILLECTOMY TYMPANOSTOMY TUBE PLACEMENT Allergies Allergen Reactions Tramadol Anaphylaxis Other Reaction(s): Other (See Comments), Other (See Comments), Other: See Comments, Unknown Bleeding Nose bleed Passes out Bleeding out of ears Nose bleed Passes out Bleeding Other reaction(s): Other: See Comments Bleeding Nose bleed Passes out Bleeding Bleeding out of ears Passes out Nose bleed Passes out Other reaction(s): Other: See Comments Bleeding Nose bleed Passes out Bleeding Bleeding out of ears Passes out Nose bleed Bleeding Nose bleed Passes out Bleeding Bleeding out of ears Nose bleed Diclofenac-Misoprostol Other Reaction(s): Other (See Comments), Other: See Comments, Unknown Passes out Other reaction(s): Unknown Other reaction(s): Other: See Comments Other reaction(s): Abdominal pain, Bleeding bleeding Passes out bleeding Bleeding out of ears Passes out Other reaction(s): Abdominal pain, Bleeding bleeding Passes out bleeding Bleeding out of ears Tizanidine Hcl Other Reaction(s): Other (See Comments), Other: See Comments Bleeding Bleeding out of ears Tizanidine Nausea And Vomiting and GI intolerance Other Reaction(s): Nausea And Vomiting, Other (See Comments), Unknown Passes out Bleeding Bleeding out of ears Passes out Bleeding Passes out Passes out Other reaction(s): Other: See Comments, Unknown Passes out Bleeding Bleeding Bleeding out of ears Passes out Passes out Passes out Passes out Other reaction(s): Other: See Comments, Unknown Passes out Bleeding Bleeding Bleeding out of ears Passes out Passes out Passes out Passes out Passes out Current Outpatient Medications on File Prior to Visit Medication Sig Dispense Refill Cobalamin Combinations (Vitamin B26-Atink Acid) 500-400 MCG tablet Take 2 tablets by mouth in the morning. DULoxetine (Cymbalta) [address] capsule Take 60 mg by mouth in the morning. eszopiclone (Lunesta) 3 MG tablet Take 3 mg by mouth at bedtime fluticasone (Flonase) 50 MCG/ACT nasal spray 2 sprays to left nose twice daily. Shake gently. Before first use, prime pump. After use, clean tip and replace cap. 48 g 3 Fluticasone-Salmeterol (Advair Diskus) 500-50 MCG/ACT aerosol powder 1 puff every 12 (twelve) hours Fluticasone-Salmeterol 500-50 MCG/ACT aerosol powder Inhale 1 puff in the morning. gabapentin (Neurontin) 600 MG tablet Take 600 mg by mouth in the morning and 600 mg at noon and 600 mg in the evening and 600 mg before bedtime. metFORMIN (Glucophage) 850 MG tablet Take 850 mg by mouth 1 (one) time each day at the same time montelukast (Singulair) 10 MG tablet Take 10 mg by mouth at bedtime MULTIPLE VITAMINS PO Take 1 tablet by mouth 1 (one) time each day at the same time omeprazole (PriLOSEC) [address] capsule Take 40 mg by mouth 1 (one) time each day at the same time prazosin (Minipress) 1 MG capsule Take 1 mg by mouth at bedtime propranolol (Inderal) 20 MG tablet Take 10 mg by mouth in the morning and 10 mg before bedtime. simvastatin (Zocor) 20 MG tablet Take 20 mg by mouth in the evening No current facility-administered medications on file prior to visit. Objective Last Recorded Vitals Vitals: 06/27/24 1121 BP: 108/79 Pulse: 79 ENT Physical Exam Ear Ear comments: LT - TM retracted Assessment/Plan Diagnoses and all orders for this visit: ETD (Eustachian tube dysfunction), left - fluticasone (Flonase) 50 MCG/ACT nasal spray; 2 sprays on left BID. Shake gently. Before first use, prime pump. After use, clean tip and replace cap. - predniSONE (Deltasone) 20 MG tablet; Take 1 tablet (20 mg) by mouth in the morning and 1 tablet (20 mg) before bedtime. Do all this for 2 days. Restart ETD meds pending t-tube placement documented in this encounter [facility] 06-22-2024 Telephone encounter Note Pt is scheduled for 06/27/[address] Cuellar. [facility] 06-22-2024 Miscellaneous Notes Pt is scheduled for 06/27/[address] Cuellar. Needs appt Pt is scheduled for surgery 07/12/24. She is currently having pain in ear, pressure, dizziness. Is there anything she can do from now until her surgery to help her with these symptoms. documented in this encounter [facility] 06-22-2024 Telephone encounter Note Needs appt [facility] 06-22-2024 Telephone encounter Note Pt is scheduled for surgery 07/12/24. She is currently having pain in ear, pressure, dizziness. Is there anything she can do from now until her surgery to help her with these symptoms. [facility] 05-30-2024 History of Presen t illness Narrative Subjective Patient ID: Micheline Molina is a 64 y.o. female who presents for Ear Problem (1 month check ears ) Pt c/o left ear fullness and HL. Review of Systems All other systems reviewed and are negative. Family History Problem Relation Name Age of Onset Heart failure Mother Chelsy Chad Diabetes Mother Chelsy Chad Cancer Mother Chelsy Chad COPD Mother Chelsy Chad Asthma Mother Chelsy Chad Hypertension Mother Chelsy Chad Migraines Mother Chelsy Chad Stroke Mother Chelsy Chad Hypertension Father Chris Moran Heart failure Father Chris Moran Cancer Brother Cancer Brother Peter Moran Hypertension Sister Yahaira Olivera Hypertension Brother Lester Moran Active Ambulatory Problems Diagnosis Date Noted Anxiety 12/16/2021 Asthma (CMS/HCC) 01/09/2024 Brachial plexus lesions 06/09/2010 Reflex sympathetic dystrophy of upper extremity 06/09/2010 Conductive hearing loss, unilateral 09/21/2011 Cervical spondylosis without myelopathy 06/09/2010 GERD (gastroesophageal reflux disease) 06/09/2010 Hyperlipidemia ([facility] [place]) 06/09/2010 Hypertension ([facility]) 12/16/2021 Lateral epicondylitis 06/09/2010 Major depressive disorder, single episode, severe (HCC) ([facility]) 06/09/2010 MVP (mitral valve prolapse) 06/09/2010 Myelopathy ([facility]) 07/02/2019 Osteoarthritis 12/16/2021 Osteoporosis ([facility]) 12/16/2021 Primary fibromyalgia syndrome 06/09/2010 Type 2 diabetes mellitus ([facility]) 01/09/2024 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 Asthma, mild persistent ([facility]) 04/11/2013 Conductive hearing loss, unilateral, left ear with restricted hearing on the contralateral side 05/30/2024 Depression ([facility]) 05/30/2024 Ear pain, left 05/30/2024 Encounter for screening mammogram for malignant neoplasm of breast 05/30/2024 Encounter for screening colonoscopy 05/30/2024 Resolved Ambulatory Problems Diagnosis Date Noted Degeneration of cervical intervertebral disc 06/09/2010 Displacement of cervical intervertebral disc without myelopathy 06/09/2010 S/P cervical spinal fusion 07/02/2019 Past Medical History: Diagnosis Date Dizziness Ear problems Headache HL (hearing loss) Past Surgical History: Procedure Laterality Date SECTION, LOW TRANSVERSE x2 CHOLECYSTECTOMY EYE SURGERY x3 FOOT SURGERY Right x2 SPINAL FUSION c5-6 THORACIC OUTLET SURGERY TONSILLECTOMY TYMPANOSTOMY TUBE PLACEMENT Allergies Allergen Reactions Tramadol Anaphylaxis Other Reaction(s): Other (See Comments), Other (See Comments), Other: See Comments, Unknown Bleeding Nose bleed Passes out Bleeding out of ears Nose bleed Passes out Bleeding Other reaction(s): Other: See Comments Bleeding Nose bleed Passes out Bleeding Bleeding out of ears Passes out Nose bleed Passes out Other reaction(s): Other: See Comments Bleeding Nose bleed Passes out Bleeding Bleeding out of ears Passes out Nose bleed Bleeding Nose bleed Passes out Bleeding Bleeding out of ears Nose bleed Diclofenac-Misoprostol Other Reaction(s): Other (See Comments), Other: See Comments, Unknown Passes out Other reaction(s): Unknown Other reaction(s): Other: See Comments Other reaction(s): Abdominal pain, Bleeding bleeding Passes out bleeding Bleeding out of ears Passes out Other reaction(s): Abdominal pain, Bleeding bleeding Passes out bleeding Bleeding out of ears Tizanidine Hcl Other Reaction(s): Other (See Comments), Other: See Comments Bleeding Bleeding out of ears Tizanidine Nausea And Vomiting and GI intolerance Other Reaction(s): Nausea And Vomiting, Other (See Comments), Unknown Passes out Bleeding Bleeding out of ears Passes out Bleeding Passes out Passes out Other reaction(s): Other: See Comments, Unknown Passes out Bleeding Bleeding Bleeding out of ears Passes out Passes out Passes out Passes out Other reaction(s): Other: See Comments, Unknown Passes out Bleeding Bleeding Bleeding out of ears Passes out Passes out Passes out Passes out Passes out Current Outpatient Medications on File Prior to Visit Medication Sig Dispense Refill Cobalamin Combinations (Vitamin R42-Ajozb Acid) 500-400 MCG tablet Take 2 tablets by mouth in the morning. DULoxetine (Cymbalta) [address] capsule Take 60 mg by mouth in the morning. eszopiclone (Lunesta) 3 MG tablet Take 3 mg by mouth at bedtime fluticasone (Flonase) 50 MCG/ACT nasal spray 2 sprays to left nose twice daily. Shake gently. Before first use, prime pump. After use, clean tip and replace cap. 48 g 3 Fluticasone-Salmeterol (Advair Diskus) 500-50 MCG/ACT aerosol powder 1 puff every 12 (twelve) hours Fluticasone-Salmeterol 500-50 MCG/ACT aerosol powder Inhale 1 puff in the morning. gabapentin (Neurontin) 600 MG tablet Take 600 mg by mouth in the morning and 600 mg at noon and 600 mg in the evening and 600 mg before bedtime. metFORMIN (Glucophage) 850 MG tablet Take 850 mg by mouth 1 (one) time each day at the same time montelukast (Singulair) 10 MG tablet Take 10 mg by mouth at bedtime MULTIPLE VITAMINS PO Take 1 tablet by mouth 1 (one) time each day at the same time omeprazole (PriLOSEC) [address] capsule Take 40 mg by mouth 1 (one) time each day at the same time prazosin (Minipress) 1 MG capsule Take 1 mg by mouth at bedtime propranolol (Inderal) 20 MG tablet Take 10 mg by mouth in the morning and 10 mg before bedtime. simvastatin (Zocor) 20 MG tablet Take 20 mg by mouth in the evening No current facility-administered medications on file prior to visit. Objective Last Recorded Vitals Vitals: 05/30/24 1007 BP: 125/73 Pulse: 74 ENT Physical Exam Ear Ear comments: LT retraction and ME effusion Respiratory Inspection: breathing unlabored; normal breathing rate; Auscultation: breath sounds are clear; Cardiovascular Inspection: extremities are warm and well perfused; no peripheral edema present; Auscultation: regular rate and rhythm; Assessment/Plan Diagnoses and all orders for this visit: ETD (Eustachian tube dysfunction), left LT ETD and OME recurred. Proceed with left t-tube (LM&T) under anesthesia documented in this encounter [facility] 04-11-2024 History of Presen t illness Narrative Images from the original note were not included. Subjective Patient ID: Micheline Molina is a 64 y.o. female who presents for Ear Problem (1 wk debridement) F/U to debride left ear after softening crust with drops Family History Problem Relation Name Age of Onset Heart failure Mother Diabetes Mother Cancer Mother COPD Mother Hypertension Father Heart failure Father Cancer Brother Active Ambulatory Problems Diagnosis Date Noted Anxiety 12/16/2021 Asthma ([facility]) 01/09/2024 Brachial plexus lesions 06/09/2010 Reflex sympathetic dystrophy of upper extremity 06/09/2010 Conductive hearing loss, unilateral 09/21/2011 Cervical spondylosis without myelopathy 06/09/2010 GERD (gastroesophageal reflux disease) 06/09/2010 Hyperlipidemia ([facility]) 06/09/2010 Hypertension ([facility]) 12/16/2021 Lateral epicondylitis 06/09/2010 Major depressive disorder, single episode, severe (HCC) ([facility]) 06/09/2010 MVP (mitral valve prolapse) 06/09/2010 Myelopathy ([facility]) 07/02/2019 Osteoarthritis 12/16/2021 Osteoporosis ([facility]) 12/16/2021 Primary fibromyalgia syndrome 06/09/2010 Type 2 diabetes mellitus ([facility]) 01/09/2024 Resolved Ambulatory Problems Diagnosis Date Noted Degeneration of cervical intervertebral disc 06/09/2010 Displacement of cervical intervertebral disc without myelopathy 06/09/2010 S/P cervical spinal fusion 07/02/2019 Past Medical History: Diagnosis Date Ear problems Past Surgical History: Procedure Laterality Date SECTION, LOW TRANSVERSE x2 CHOLECYSTECTOMY EYE SURGERY x3 FOOT SURGERY Right x2 SPINAL FUSION c5-6 THORACIC OUTLET SURGERY TONSILLECTOMY TYMPANOSTOMY TUBE PLACEMENT Allergies Allergen Reactions Tramadol Anaphylaxis Other Reaction(s): Other (See Comments), Other (See Comments), Other: See Comments, Unknown Bleeding Nose bleed Passes out Bleeding out of ears Nose bleed Passes out Bleeding Other reaction(s): Other: See Comments Bleeding Nose bleed Passes out Bleeding Bleeding out of ears Passes out Nose bleed Passes out Other reaction(s): Other: See Comments Bleeding Nose bleed Passes out Bleeding Bleeding out of ears Passes out Nose bleed Bleeding Nose bleed Passes out Bleeding Bleeding out of ears Nose bleed Diclofenac-Misoprostol Other Reaction(s): Other (See Comments), Other: See Comments, Unknown Passes out Other reaction(s): Unknown Other reaction(s): Other: See Comments Other reaction(s): Abdominal pain, Bleeding bleeding Passes out bleeding Bleeding out of ears Passes out Other reaction(s): Abdominal pain, Bleeding bleeding Passes out bleeding Bleeding out of ears Tizanidine Hcl Other Reaction(s): Other (See Comments), Other: See Comments Bleeding Bleeding out of ears Tizanidine Nausea And Vomiting and GI intolerance Other Reaction(s): Nausea And Vomiting, Other (See Comments), Unknown Passes out Bleeding Bleeding out of ears Passes out Bleeding Passes out Passes out Other reaction(s): Other: See Comments, Unknown Passes out Bleeding Bleeding Bleeding out of ears Passes out Passes out Passes out Passes out Other reaction(s): Other: See Comments, Unknown Passes out Bleeding Bleeding Bleeding out of ears Passes out Passes out Passes out Passes out Passes out Current Outpatient Medications on File Prior to Visit Medication Sig Dispense Refill Cobalamin Combinations (Vitamin G77-[place] Acid) 500-400 MCG tablet Take 2 tablets by mouth in the morning. DULoxetine (Cymbalta) [address] capsule Take 60 mg by mouth in the morning. eszopiclone (Lunesta) 3 MG tablet Take 3 mg by mouth at bedtime Fluticasone-Salmeterol (Advair Diskus) 500-50 MCG/ACT aerosol powder 1 puff every 12 (twelve) hours Fluticasone-Salmeterol 500-50 MCG/ACT aerosol powder Inhale 1 puff in the morning. gabapentin (Neurontin) 600 MG tablet Take 600 mg by mouth in the morning and 600 mg at noon and 600 mg in the evening and 600 mg before bedtime. metFORMIN (Glucophage) 850 MG tablet Take 850 mg by mouth 1 (one) time each day at the same time montelukast (Singulair) 10 MG tablet Take 10 mg by mouth at bedtime MULTIPLE VITAMINS PO Take 1 tablet by mouth 1 (one) time each day at the same time ofloxacin (Floxin) 0.3 % otic solution Administer 6 drops into the left ear in the morning and 6 drops before bedtime. Do all this for 7 days. 10 mL 0 omeprazole (PriLOSEC) [address] capsule Take 40 mg by mouth 1 (one) time each day at the same time prazosin (Minipress) 1 MG capsule Take 1 mg by mouth at bedtime propranolol (Inderal) 20 MG tablet Take 10 mg by mouth in the morning and 10 mg before bedtime. simvastatin (Zocor) 20 MG tablet Take 20 mg by mouth in the evening No current facility-administered medications on file prior to visit. Objective Last Recorded Vitals Vitals: 04/11/24 0902 BP: 138/85 ENT Physical Exam Ear Ear comments: 2LT - crust debrided and tube noted to be obstructed medially by ST. Tube removed Assessment/Plan LT ETD and FB Lt ear debrided. F/U one mo to assess if new tube will be needeed Patient ID: Micheline Molina is a 64 y.o. female. Procedures Foreign body removed from the left ear canal under micro with a suction and forecep documented in this encounter [facility] 04-04-2024 History of Presen t illness Narrative Images from the original note were not included. Subjective Patient ID: Micheline Molina is a 64 y.o. female who presents for Ear Problem (Left ear is plugged up ) Family History Problem Relation Name Age of Onset Heart failure Mother Diabetes Mother Cancer Mother COPD Mother Hypertension Father Heart failure Father Cancer Brother Active Ambulatory Problems Diagnosis Date Noted Anxiety 12/16/2021 Asthma ([facility] [place]) 01/09/2024 Brachial plexus lesions 06/09/2010 Reflex sympathetic dystrophy of upper extremity 06/09/2010 Conductive hearing loss, unilateral 09/21/2011 Cervical spondylosis without myelopathy 06/09/2010 GERD (gastroesophageal reflux disease) 06/09/2010 Hyperlipidemia ([facility] [place]) 06/09/2010 Hypertension ([facility]) 12/16/2021 Lateral epicondylitis 06/09/2010 Major depressive disorder, single episode, severe ([facility]) ([facility] [place]) 06/09/2010 MVP (mitral valve prolapse) 06/09/2010 Myelopathy ([facility] [place]) 07/02/2019 Osteoarthritis 12/16/2021 Osteoporosis ([facility] [place]) 12/16/2021 Primary fibromyalgia syndrome 06/09/2010 Type 2 diabetes mellitus ([facility] [place]) 01/09/2024 Resolved Ambulatory Problems Diagnosis Date Noted Degeneration of cervical intervertebral disc 06/09/2010 Displacement of cervical intervertebral disc without myelopathy 06/09/2010 S/P cervical spinal fusion 07/02/2019 Past Medical History: Diagnosis Date Ear problems Past Surgical History: Procedure Laterality Date SECTION, LOW TRANSVERSE x2 CHOLECYSTECTOMY EYE SURGERY x3 FOOT SURGERY Right x2 SPINAL FUSION c5-6 THORACIC OUTLET SURGERY TONSILLECTOMY TYMPANOSTOMY TUBE PLACEMENT Allergies Allergen Reactions Tramadol Anaphylaxis Other Reaction(s): Other (See Comments), Other (See Comments), Other: See Comments, Unknown Bleeding Nose bleed Passes out Bleeding out of ears Nose bleed Passes out Bleeding Other reaction(s): Other: See Comments Bleeding Nose bleed Passes out Bleeding Bleeding out of ears Passes out Nose bleed Passes out Other reaction(s): Other: See Comments Bleeding Nose bleed Passes out Bleeding Bleeding out of ears Passes out Nose bleed Bleeding Nose bleed Passes out Bleeding Bleeding out of ears Nose bleed Diclofenac-Misoprostol Other Reaction(s): Other (See Comments), Other: See Comments, Unknown Passes out Other reaction(s): Unknown Other reaction(s): Other: See Comments Other reaction(s): Abdominal pain, Bleeding bleeding Passes out bleeding Bleeding out of ears Passes out Other reaction(s): Abdominal pain, Bleeding bleeding Passes out bleeding Bleeding out of ears Tizanidine Hcl Other Reaction(s): Other (See Comments), Other: See Comments Bleeding Bleeding out of ears Tizanidine Nausea And Vomiting and GI intolerance Other Reaction(s): Nausea And Vomiting, Other (See Comments), Unknown Passes out Bleeding Bleeding out of ears Passes out Bleeding Passes out Passes out Other reaction(s): Other: See Comments, Unknown Passes out Bleeding Bleeding Bleeding out of ears Passes out Passes out Passes out Passes out Other reaction(s): Other: See Comments, Unknown Passes out Bleeding Bleeding Bleeding out of ears Passes out Passes out Passes out Passes out Passes out Current Outpatient Medications on File Prior to Visit Medication Sig Dispense Refill Cobalamin Combinations (Vitamin C88-Dszlp Acid) 500-400 MCG tablet Take 2 tablets by mouth in the morning. DULoxetine (Cymbalta) [address] capsule Take 60 mg by mouth in the morning. eszopiclone (Lunesta) 3 MG tablet Take 3 mg by mouth at bedtime Fluticasone-Salmeterol (Advair Diskus) 500-50 MCG/ACT aerosol powder 1 puff every 12 (twelve) hours Fluticasone-Salmeterol 500-50 MCG/ACT aerosol powder Inhale 1 puff in the morning. gabapentin (Neurontin) 600 MG tablet Take 600 mg by mouth in the morning and 600 mg at noon and 600 mg in the evening and 600 mg before bedtime. metFORMIN (Glucophage) 850 MG tablet Take 850 mg by mouth 1 (one) time each day at the same time montelukast (Singulair) 10 MG tablet Take 10 mg by mouth at bedtime MULTIPLE VITAMINS PO Take 1 tablet by mouth 1 (one) time each day at the same time omeprazole (PriLOSEC) [address] capsule Take 40 mg by mouth 1 (one) time each day at the same time prazosin (Minipress) 1 MG capsule Take 1 mg by mouth at bedtime propranolol (Inderal) 20 MG tablet Take 10 mg by mouth in the morning and 10 mg before bedtime. simvastatin (Zocor) 20 MG tablet Take 20 mg by mouth in the evening No current facility-administered medications on file prior to visit. Objective Last Recorded Vitals Vitals: 04/04/24 0920 BP: 131/83 ENT Physical Exam Constitutional Appearance: patient appears well-developed, well-nourished and well-groomed, Communication/Voice: communication appropriate for developmental age; vocal quality normal; Ear Ear comments: RT cerumen impaction. LT tube obstructed by crust Patient ID: Micheline Molina is a 64 y.o. female. Procedures Cerumen was removed from the right ear using binocular microscopy under micro with foreceps Assessment/Plan Diagnoses and all orders for this visit: ETD (Eustachian tube dysfunction), left - ofloxacin (Floxin) 0.3 % otic solution; Administer 6 drops into the left ear in the morning and 6 drops before bedtime. Do all this for 7 days. Right ear impacted cerumen Use drops to soften crust and F/U to debride tube. May need to be removed documented in this encounter [facility] 01-17-2024 History of Presen t illness Narrative Images from the original note were not included. Subjective Patient ID: Micheline Molina is a 63 y.o. female who presents for Ear Problem (Clean ears) F/U to remove crust from left ear after softening Family History Problem Relation Name Age of Onset Heart failure Mother Diabetes Mother Cancer Mother COPD Mother Hypertension Father Heart failure Father Cancer Brother Active Ambulatory Problems Diagnosis Date Noted Anxiety 12/16/2021 Asthma ([facility]) 01/09/2024 Brachial plexus lesions 06/09/2010 Reflex sympathetic dystrophy of upper extremity 06/09/2010 Conductive hearing loss, unilateral 09/21/2011 Cervical spondylosis without myelopathy 06/09/2010 GERD (gastroesophageal reflux disease) 06/09/2010 Hyperlipidemia ([facility]) 06/09/2010 Hypertension ([facility]) 12/16/2021 Lateral epicondylitis 06/09/2010 Major depressive disorder, single episode, severe (HCC) ([facility]) 06/09/2010 MVP (mitral valve prolapse) 06/09/2010 Myelopathy ([facility]) 07/02/2019 Osteoarthritis 12/16/2021 Osteoporosis ([facility]) 12/16/2021 Primary fibromyalgia syndrome 06/09/2010 Type 2 diabetes mellitus ([facility]) 01/09/2024 Resolved Ambulatory Problems Diagnosis Date Noted Degeneration of cervical intervertebral disc 06/09/2010 Displacement of cervical intervertebral disc without myelopathy 06/09/2010 S/P cervical spinal fusion 07/02/2019 No Additional Past Medical History Past Surgical History: Procedure Laterality Date SECTION, LOW TRANSVERSE x2 CHOLECYSTECTOMY EYE SURGERY x3 FOOT SURGERY Right x2 SPINAL FUSION c5-6 THORACIC OUTLET SURGERY TONSILLECTOMY TYMPANOSTOMY TUBE PLACEMENT Allergies Allergen Reactions Tramadol Anaphylaxis Other Reaction(s): Other (See Comments), Other (See Comments), Other: See Comments, Unknown Bleeding Nose bleed Passes out Bleeding out of ears Nose bleed Passes out Bleeding Other reaction(s): Other: See Comments Bleeding Nose bleed Passes out Bleeding Bleeding out of ears Passes out Nose bleed Passes out Other reaction(s): Other: See Comments Bleeding Nose bleed Passes out Bleeding Bleeding out of ears Passes out Nose bleed Bleeding Nose bleed Passes out Bleeding Bleeding out of ears Nose bleed Diclofenac-Misoprostol Other Reaction(s): Other (See Comments), Other: See Comments, Unknown Passes out Other reaction(s): Unknown Other reaction(s): Other: See Comments Other reaction(s): Abdominal pain, Bleeding bleeding Passes out bleeding Bleeding out of ears Passes out Other reaction(s): Abdominal pain, Bleeding bleeding Passes out bleeding Bleeding out of ears Tizanidine Hcl Other Reaction(s): Other (See Comments), Other: See Comments Bleeding Bleeding out of ears Tizanidine Nausea And Vomiting and GI intolerance Other Reaction(s): Nausea And Vomiting, Other (See Comments), Unknown Passes out Bleeding Bleeding out of ears Passes out Bleeding Passes out Passes out Other reaction(s): Other: See Comments, Unknown Passes out Bleeding Bleeding Bleeding out of ears Passes out Passes out Passes out Passes out Other reaction(s): Other: See Comments, Unknown Passes out Bleeding Bleeding Bleeding out of ears Passes out Passes out Passes out Passes out Passes out Current Outpatient Medications on File Prior to Visit Medication Sig Dispense Refill Cobalamin Combinations (Vitamin L89-Rlmqv Acid) 500-400 MCG tablet Take 2 tablets by mouth in the morning. DULoxetine (Cymbalta) [address] capsule Take 60 mg by mouth in the morning. eszopiclone (Lunesta) 3 MG tablet Take 3 mg by mouth at bedtime Fluticasone-Salmeterol (Advair Diskus) 500-50 MCG/ACT aerosol powder 1 puff every 12 (twelve) hours Fluticasone-Salmeterol 500-50 MCG/ACT aerosol powder Inhale 1 puff in the morning. gabapentin (Neurontin) 600 MG tablet Take 600 mg by mouth in the morning and 600 mg at noon and 600 mg in the evening and 600 mg before bedtime. metFORMIN (Glucophage) 850 MG tablet Take 850 mg by mouth 1 (one) time each day at the same time montelukast (Singulair) 10 MG tablet Take 10 mg by mouth at bedtime MULTIPLE VITAMINS PO Take 1 tablet by mouth 1 (one) time each day at the same time omeprazole (PriLOSEC) [address] capsule Take 40 mg by mouth 1 (one) time each day at the same time prazosin (Minipress) 1 MG capsule Take 1 mg by mouth at bedtime propranolol (Inderal) 20 MG tablet Take 10 mg by mouth in the morning and 10 mg before bedtime. simvastatin (Zocor) 20 MG tablet Take 20 mg by mouth in the evening [] ofloxacin (Floxin) 0.3 % otic solution Administer 4 drops into affected ear(s) in the morning and 4 drops in the evening and 4 drops before bedtime. Do all this for 7 days. 10 mL 0 No current facility-administered medications on file prior to visit. Objective Last Recorded Vitals Vitals: 01/17/24 0851 BP: 131/83 ENT Physical Exam Constitutional Appearance: patient appears well-developed, well-nourished and well-groomed, Communication/Voice: communication appropriate for developmental age; vocal quality normal; Ear Ear comments: LT - Softened crust suctioned from EAC. TIP&P, dry Patient ID: Micheline Molina is a 63 y.o. female. Procedures Foreign body removed from the left ear canal under micro with a suction Assessment/Plan Diagnoses and all orders for this visit: Foreign body of left ear, initial encounter Left ear debrided, and tube not displaced documented in this encounter [facility] 01-09-2024 History of Presen t illness Narrative Subjective Patient ID: Micheline Molina is a 63 y.o. female who presents for Ear Problem (Left ear discomfort, tube check) Pt lost to F/U after left t-tube and paper patch in November,. Now c/o left HL, pain and pressure. No tx yet Family History Problem Relation Name Age of Onset Heart failure Mother Diabetes Mother Cancer Mother COPD Mother Hypertension Father Heart failure Father Cancer Brother Active Ambulatory Problems Diagnosis Date Noted Anxiety 12/16/2021 Asthma ([facility] [facility]) 01/09/2024 Brachial plexus lesions 06/09/2010 Reflex sympathetic dystrophy of upper extremity 06/09/2010 Conductive hearing loss, unilateral 09/21/2011 Cervical spondylosis without myelopathy 06/09/2010 GERD (gastroesophageal reflux disease) 06/09/2010 Hyperlipidemia ([facility]) 06/09/2010 Hypertension ([facility]) 12/16/2021 Lateral epicondylitis 06/09/2010 Major depressive disorder, single episode, severe ([facility]) ([facility]) 06/09/2010 MVP (mitral valve prolapse) 06/09/2010 Myelopathy ([facility]) 07/02/2019 Osteoarthritis 12/16/2021 Osteoporosis ([facility]) 12/16/2021 Primary fibromyalgia syndrome 06/09/2010 Type 2 diabetes mellitus ([facility]) 01/09/2024 Resolved Ambulatory Problems Diagnosis Date Noted Degeneration of cervical intervertebral disc 06/09/2010 Displacement of cervical intervertebral disc without myelopathy 06/09/2010 S/P cervical spinal fusion 07/02/2019 No Additional Past Medical History Past Surgical History: Procedure Laterality Date SECTION, LOW TRANSVERSE x2 CHOLECYSTECTOMY EYE SURGERY x3 FOOT SURGERY Right x2 SPINAL FUSION c5-6 THORACIC OUTLET SURGERY TONSILLECTOMY TYMPANOSTOMY TUBE PLACEMENT Allergies Allergen Reactions Tramadol Anaphylaxis Other Reaction(s): Other (See Comments), Other (See Comments), Other: See Comments, Unknown Bleeding Nose bleed Passes out Bleeding out of ears Nose bleed Passes out Bleeding Other reaction(s): Other: See Comments Bleeding Nose bleed Passes out Bleeding Bleeding out of ears Passes out Nose bleed Passes out Other reaction(s): Other: See Comments Bleeding Nose bleed Passes out Bleeding Bleeding out of ears Passes out Nose bleed Bleeding Nose bleed Passes out Bleeding Bleeding out of ears Nose bleed Diclofenac-Misoprostol Other Reaction(s): Other (See Comments), Other: See Comments, Unknown Passes out Other reaction(s): Unknown Other reaction(s): Other: See Comments Other reaction(s): Abdominal pain, Bleeding bleeding Passes out bleeding Bleeding out of ears Passes out Other reaction(s): Abdominal pain, Bleeding bleeding Passes out bleeding Bleeding out of ears Tizanidine Hcl Other Reaction(s): Other (See Comments), Other: See Comments Bleeding Bleeding out of ears Tizanidine Nausea And Vomiting and GI intolerance Other Reaction(s): Nausea And Vomiting, Other (See Comments), Unknown Passes out Bleeding Bleeding out of ears Passes out Bleeding Passes out Passes out Other reaction(s): Other: See Comments, Unknown Passes out Bleeding Bleeding Bleeding out of ears Passes out Passes out Passes out Passes out Other reaction(s): Other: See Comments, Unknown Passes out Bleeding Bleeding Bleeding out of ears Passes out Passes out Passes out Passes out Passes out Current Outpatient Medications on File Prior to Visit Medication Sig Dispense Refill Cobalamin Combinations (Vitamin J38-Yvywp Acid) 500-400 MCG tablet Take 2 tablets by mouth in the morning. DULoxetine (Cymbalta) [address] capsule Take 60 mg by mouth in the morning. eszopiclone (Lunesta) 3 MG tablet Take 3 mg by mouth at bedtime Fluticasone-Salmeterol (Advair Diskus) 500-50 MCG/ACT aerosol powder 1 puff every 12 (twelve) hours Fluticasone-Salmeterol 500-50 MCG/ACT aerosol powder Inhale 1 puff in the morning. gabapentin (Neurontin) 600 MG tablet Take 600 mg by mouth in the morning and 600 mg at noon and 600 mg in the evening and 600 mg before bedtime. metFORMIN (Glucophage) 850 MG tablet Take 850 mg by mouth 1 (one) time each day at the same time montelukast (Singulair) 10 MG tablet Take 10 mg by mouth at bedtime MULTIPLE VITAMINS PO Take 1 tablet by mouth 1 (one) time each day at the same time omeprazole (PriLOSEC) [address] capsule Take 40 mg by mouth 1 (one) time each day at the same time prazosin (Minipress) 1 MG capsule Take 1 mg by mouth at bedtime propranolol (Inderal) 20 MG tablet Take 10 mg by mouth in the morning and 10 mg before bedtime. simvastatin (Zocor) 20 MG tablet Take 20 mg by mouth in the evening No current facility-administered medications on file prior to visit. Objective Last Recorded Vitals Vitals: 01/09/24 1113 BP: 111/86 ENT Physical Exam Constitutional Appearance: patient appears well-developed, well-nourished and well-groomed, Communication/Voice: communication appropriate for developmental age; vocal quality normal; Ear Ear comments: LT - hard crust filling medial EAC. Assessment/Plan Diagnoses and all orders for this visit: Acute otalgia, left I will start floxin to soften crust and see pt in [place]. Tube may be out documented in this encounter [facility] 05-30-2023 Note Orthopedic Surgery Subjective Pain of the Right Shoulder 05/30/2023 Marlen returns today for follow-up after approval of a right shoulder corticosteroid injection. She also brings in her MRIs on disc for me to personally review. She is a [facility] patient who had injured her shoulder and had an MRI back in September 2022 that demonstrated a partial-thickness rotator cuff tear and mild AC joint arthritis. There was interstitial tearing of the long head of biceps tendon and labral degeneration. She however then had a trip and fall and reinjured the shoulder. Repeat MRI in March 2023 demonstrated no significant changes from her previous MRI other than some marrow edema consistent with bone contusion. I offered her a corticosteroid injection. We submitted to [facility] a C9 for this. She also brought in the MRIs for me to personally review today. I did so and agree with the radiologist report 04/19/23 In the interim, patient is here for review of her MRI, she continues to have some pain and dysfunction with use of the shoulder especially forward flexion and abduction. 03/08/2023 Yanci had a good response to her corticosteroid injection for the right shoulder. However on 02/21/2023, she had a trip and fall and reinjured the right shoulder. Exam today demonstrates swelling and ecchymosis. She has a significant increase in her pain and she cannot elevate her right shoulder. X-rays in the emergency room were negative for fracture. She has a known right shoulder partial-thickness rotator cuff tear. My concern is that with this fall she may have torn this further and it might now be a full-thickness tear. My recommendation would be MRI of the right shoulder. C9 MRI right shoulder 02/01/2023 Micheline returns today for follow-up. Her right shoulder steroid injection has been approved by [employer]. 11/23/22 Micheline Molina is a 62 y.o. female presenting for evaluation of R shoulder pain. She is a [facility] patient who was injured while holding up a screen. She then fell backwards and hit her head. She has had R shoulder pain since. She has RSD which is being managed by Dr. Dilan Salcedo. MRI R shoulder shows partial RCT. She has not yet tried PT or NSAIDs. I will try this first. If not improved in 6 weeks, I will offer CSI. I will submit C-9 for R shoulder PT, and R shoulder CSI in 6 weeks. [employer] for no lifting >10lbs and no overhead for 2 months. Review of Systems unremarkable aside from what is noted in HPI Joint pain Patient History Past Surgical History: Procedure Laterality Date SECTION, CLASSIC CHOLECYSTECTOMY EYE SURGERY FOOT SURGERY Right X2 INNER EAR SURGERY TUBE SPINE SURGERY C5,6 Past Medical History: Diagnosis Date Anxiety Aspergillosis (CMS/HCC) Fibromyalgia High cholesterol Osteoporosis Objective General: Body mass index is 29.29 kg/m???. No acute distress, comfortable Respiratory: Unlabored breathing with normal rate, no cough Cardiovascular: Warm well perfused extremities Psych: Appropriate mood behavior Shoulder Musculoskeletal Exam Inspection Right Ecchymosis: none Left Ecchymosis: none Palpation Right Tenderness: present Rotator cuff: moderate Left Left shoulder palpation is normal. Range of Motion Right Right shoulder range of motion is limited. Left Left shoulder range of motion is normal. Strength Right Abduction: 3/5. Left Left shoulder strength is normal. Neurovascular Right Right shoulder nerve sensation is normal. Left Left shoulder nerve sensation is normal. Special Tests Right Rotator Cuff Signs Neer's test: positive Coats test: positive Imaging personally reviewed: MRI R shoulder shows partial RCT, interstitial long head of biceps tear, and mild AC DJD MRI R shoulder repeat shows: 1. Marrow edema at the humeral head likely posttraumatic with nondisplaced fracturing of the greater tuberosity not excluded. 2. Low-grade multifocal partial-thickness interstitial and articular-surface tearing of supraspinatus and infraspinatus between critical zone and footplate with moderate underlying supraspinatus and infraspinatus tendinosis. 3. Low-grade partial-thickness interstitial and articular surface tearing of the insertional fibers of subscapularis. 4. Mild tendinosis of the intra-articular long head of biceps tendon. 3 mild diffuse labral degeneration. Mild glenohumeral chondromalacia. 5. Thickening of the inferior glenohumeral ligament which can be seen with adhesive capsulitis. Small glenohumeral joint effusion. 6. Mild degenerative change of the right AC joint. Assessment/Plan Micheline Molina is a 63 y.o. year old female with Traumatic incomplete tear of right rotator cuff, subsequent encounter Large Joint: R subacromial bursa on 05/30/2023 11:27 AM Indications: pain Details: 21 G needle, superior approach Medications: 20 mg triamcinolone acetonide 10 mg/m (more content not included)... [facility] 04-19-2023 Note Attestation signed by Pavan Marrero MD at 04/19/2023 1:51 PM I personally saw and examined the patient on the same date of service as resident/fellow . I discussed the findings and therapeutic plan with the resident/fellow . I agree with the documentation, except for any edits/updates below. Teaching Physician's Revisions: No revisions Orthopedic Surgery Subjective Pain of the Right Shoulder 04/19/23 In the interim, patient is here for review of her MRI, she continues to have some pain and dysfunction with use of the shoulder especially forward flexion and abduction. 03/08/2023 Yanci had a good response to her corticosteroid injection for the right shoulder. However on 02/21/2023, she had a trip and fall and reinjured the right shoulder. Exam today demonstrates swelling and ecchymosis. She has a significant increase in her pain and she cannot elevate her right shoulder. X-rays in the emergency room were negative for fracture. She has a known right shoulder partial-thickness rotator cuff tear. My concern is that with this fall she may have torn this further and it might now be a full-thickness tear. My recommendation would be MRI of the right shoulder. C9 MRI right shoulder 02/01/2023 Micheline returns today for follow-up. Her right shoulder steroid injection has been approved by [employer]. 11/23/22 Micheline Molina is a 62 y.o. female presenting for evaluation of R shoulder pain. She is a [facility] patient who was injured while holding up a screen. She then fell backwards and hit her head. She has had R shoulder pain since. She has RSD which is being managed by Dr. Dilan Salcedo. MRI R shoulder shows partial RCT. She has not yet tried PT or NSAIDs. I will try this first. If not improved in 6 weeks, I will offer CSI. I will submit C-9 for R shoulder PT, and R shoulder CSI in 6 weeks. [employer] for no lifting >10lbs and no overhead for 2 months. Review of Systems unremarkable aside from what is noted in HPI Joint pain Patient History Past Surgical History: Procedure Laterality Date SECTION, CLASSIC CHOLECYSTECTOMY EYE SURGERY FOOT SURGERY Right X2 INNER EAR SURGERY TUBE SPINE SURGERY C5,6 Past Medical History: Diagnosis Date Anxiety Aspergillosis ([facility]) Fibromyalgia High cholesterol Osteoporosis Objective General: Body mass index is 29.29 kg/m???. No acute distress, comfortable Respiratory: Unlabored breathing with normal rate, no cough Cardiovascular: Warm well perfused extremities Psych: Appropriate mood behavior Shoulder Musculoskeletal Exam Inspection Right Ecchymosis: none Left Ecchymosis: none Palpation Right Tenderness: present Rotator cuff: moderate Left Left shoulder palpation is normal. Range of Motion Right Right shoulder range of motion is limited. Left Left shoulder range of motion is normal. Strength Right Abduction: 3/5. Left Left shoulder strength is normal. Neurovascular Right Right shoulder nerve sensation is normal. Left Left shoulder nerve sensation is normal. Special Tests Right Rotator Cuff Signs Neer's test: positive Coats test: positive Imaging personally reviewed: MRI R shoulder shows partial RCT, interstitial long head of biceps tear, and mild AC DJD MRI R shoulder repeat shows: 1. Marrow edema at the humeral head likely posttraumatic with nondisplaced fracturing of the greater tuberosity not excluded. 2. Low-grade multifocal partial-thickness interstitial and articular-surface tearing of supraspinatus and infraspinatus between critical zone and footplate with moderate underlying supraspinatus and infraspinatus tendinosis. 3. Low-grade partial-thickness interstitial and articular surface tearing of the insertional fibers of subscapularis. 4. Mild tendinosis of the intra-articular long head of biceps tendon. 3 mild diffuse labral degeneration. Mild glenohumeral chondromalacia. 5. Thickening of the inferior glenohumeral ligament which can be seen with adhesive capsulitis. Small glenohumeral joint effusion. 6. Mild degenerative change of the right AC joint. Assessment/Plan Micheline Molina is a 63 y.o. year old female with Traumatic incomplete tear of right rotator cuff, subsequent encounter -Discussed with patient that her MRI does not show progression of her partial-thickness tear to a massive tear. However she still has significant pain and dysfunction. Thus we will submit a C9 for repeat steroid injection to the right shoulder. This will help facilitation of restriction of motion. Patient agrees with that. -Return to clinic after C9 is approved for injection so we can perform this with the patient. Zeeshan Regan MD Orthopaedic Surgery, PGY-V 04/19/2023 Zeeshan Regan, (more content not included)... [facility] 03-08-2023 Note Orthopedic Surgery Subjective Pain of the Right Shoulder 03/08/2023 Yanci had a good response to her corticosteroid injection for the right shoulder. However on 02/21/2023, she had a trip and fall and reinjured the right shoulder. Exam today demonstrates swelling and ecchymosis. She has a significant increase in her pain and she cannot elevate her right shoulder. X-rays in the emergency room were negative for fracture. She has a known right shoulder partial-thickness rotator cuff tear. My concern is that with this fall she may have torn this further and it might now be a full-thickness tear. My recommendation would be MRI of the right shoulder. C9 MRI right shoulder 02/01/2023 Micheline returns today for follow-up. Her right shoulder steroid injection has been approved by [employer]. 11/23/22 Micheline Molina is a 62 y.o. female presenting for evaluation of R shoulder pain. She is a [facility] patient who was injured while holding up a screen. She then fell backwards and hit her head. She has had R shoulder pain since. She has RSD which is being managed by Dr. Dilan Salcedo. MRI R shoulder shows partial RCT. She has not yet tried PT or NSAIDs. I will try this first. If not improved in 6 weeks, I will offer CSI. I will submit C-9 for R shoulder PT, and R shoulder CSI in 6 weeks. [employer] for no lifting >10lbs and no overhead for 2 months. Review of Systems unremarkable aside from what is noted in HPI Joint pain Patient History Past Surgical History: Procedure Laterality Date SECTION, CLASSIC CHOLECYSTECTOMY EYE SURGERY FOOT SURGERY Right X2 INNER EAR SURGERY TUBE SPINE SURGERY C5,6 Past Medical History: Diagnosis Date Anxiety Aspergillosis (CMS/HCC) Fibromyalgia High cholesterol Osteoporosis Objective General: Body mass index is 29.29 kg/m???. No acute distress, comfortable Respiratory: Unlabored breathing with normal rate, no cough Cardiovascular: Warm well perfused extremities Psych: Appropriate mood behavior Shoulder Musculoskeletal Exam Inspection Right Ecchymosis: none Left Ecchymosis: none Palpation Right Tenderness: present Rotator cuff: moderate Left Left shoulder palpation is normal. Range of Motion Right Right shoulder range of motion is normal. Left Left shoulder range of motion is normal. Strength Right Abduction: 3/5. Left Left shoulder strength is normal. Neurovascular Right Right shoulder nerve sensation is normal. Left Left shoulder nerve sensation is normal. Special Tests Right Rotator Cuff Signs Neer's test: positive Coats test: positive Imaging personally reviewed: MRI R shoulder shows partial RCT, interstitial long head of biceps tear, and mild AC DJD Assessment/Plan Micheline Molina is a 63 y.o. year old female with Sprain of shoulder and upper arm, right, initial encounter C9 for MRI right shoulder [facility] 02-01-2023 Note Orthopedic Surgery Subjective Pain of the Right Shoulder 02/01/2023 Micheline returns today for follow-up. Her right shoulder steroid injection has been approved by Workmen[employer] Compensation. 11/23/22 Micheline Molina is a 62 y.o. female presenting for evaluation of R shoulder pain. She is a [facility] patient who was injured while holding up a screen. She then fell backwards and hit her head. She has had R shoulder pain since. She has RSD which is being managed by Dr. Dilan Salcedo. MRI R shoulder shows partial RCT. She has not yet tried PT or NSAIDs. I will try this first. If not improved in 6 weeks, I will offer CSI. I will submit C-9 for R shoulder PT, and R shoulder CSI in 6 weeks. [employer] 14 for no lifting >10lbs and no overhead for 2 months. Review of Systems unremarkable aside from what is noted in HPI Joint pain Patient History Past Surgical History: Procedure Laterality Date SECTION, CLASSIC CHOLECYSTECTOMY EYE SURGERY FOOT SURGERY Right X2 INNER EAR SURGERY TUBE SPINE SURGERY C5,6 Past Medical History: Diagnosis Date Anxiety Aspergillosis (CMS/HCC) Fibromyalgia High cholesterol Osteoporosis Objective General: Body mass index is 29.29 kg/m???. No acute distress, comfortable Respiratory: Unlabored breathing with normal rate, no cough Cardiovascular: Warm well perfused extremities Psych: Appropriate mood behavior Shoulder Musculoskeletal Exam Inspection Right Ecchymosis: none Left Ecchymosis: none Palpation Right Tenderness: present Rotator cuff: moderate Left Left shoulder palpation is normal. Range of Motion Right Right shoulder range of motion is normal. Left Left shoulder range of motion is normal. Strength Right Abduction: 3/5. Left Left shoulder strength is normal. Neurovascular Right Right shoulder nerve sensation is normal. Left Left shoulder nerve sensation is normal. Special Tests Right Rotator Cuff Signs Neer's test: positive Coats test: positive Imaging personally reviewed: MRI R shoulder shows partial RCT, interstitial long head of biceps tear, and mild AC DJD Assessment/Plan Micheline Molina is a 63 y.o. year old female with Traumatic incomplete tear of right rotator cuff, initial encounter Sprain of shoulder and upper arm, right, initial encounter R shoulder CSI Follow-up when injection wears off Large Joint: R subacromial bursa on 02/01/2023 1:57 PM Indications: pain Details: 21 G needle, superior approach Medications: 20 mg triamcinolone acetonide 10 mg/mL; 4 mL lidocaine 10 mg/mL (1 %) Outcome: tolerated well, no immediate complications Procedure, treatment alternatives, risks and benefits explained, specific risks discussed. Consent was given by the patient. Patient was prepped and draped in the usual sterile fashion. [facility] 11-23-2022 Note Orthopedic Surgery Subjective Pain of the Right Shoulder 11/23/22 Micheline Molina is a 62 y.o. female presenting for evaluation of R shoulder pain. She is a [facility] patient who was injured while holding up a screen. She then fell backwards and hit her head. She has had R shoulder pain since. She has RSD which is being managed by Dr. Dilan Salcedo. MRI R shoulder shows partial RCT. She has not yet tried PT or NSAIDs. I will try this first. If not improved in 6 weeks, I will offer CSI. I will submit C-9 for R shoulder PT, and R shoulder CSI in 6 weeks. [employer] 14 for no lifting >10lbs and no overhead for 2 months. Review of Systems unremarkable aside from what is noted in HPI Joint pain Patient History Past Surgical History: Procedure Laterality Date SECTION, CLASSIC CHOLECYSTECTOMY EYE SURGERY FOOT SURGERY Right X2 INNER EAR SURGERY TUBE SPINE SURGERY C5,6 Past Medical History: Diagnosis Date Anxiety Aspergillosis (CMS/[facility]) Fibromyalgia High cholesterol Osteoporosis Objective General: Body mass index is 29.29 kg/m???. No acute distress, comfortable Respiratory: Unlabored breathing with normal rate, no cough Cardiovascular: Warm well perfused extremities Psych: Appropriate mood behavior Shoulder Musculoskeletal Exam Inspection Right Ecchymosis: none Left Ecchymosis: none Palpation Right Tenderness: present Rotator cuff: moderate Left Left shoulder palpation is normal. Range of Motion Right Right shoulder range of motion is normal. Left Left shoulder range of motion is normal. Strength Right Abduction: 3/5. Left Left shoulder strength is normal. Neurovascular Right Right shoulder nerve sensation is normal. Left Left shoulder nerve sensation is normal. Special Tests Right Rotator Cuff Signs Neer's test: positive Coats test: positive Imaging personally reviewed: MRI R shoulder shows partial RCT, interstitial long head of biceps tear, and mild AC DJD Assessment/Plan Micheline Molina is a 62 y.o. year old female with Micheline Molina is a 62 y.o. year old female with Traumatic incomplete tear of right rotator cuff, initial encounter Right shoulder pain, unspecified chronicity Micheline Molina is a 62 y.o. female presenting for evaluation of R shoulder pain. She is a [facility] patient who was injured while holding up a screen. She then fell backwards and hit her head. She has had R shoulder pain since. She has RSD which is being managed by Dr. Dilan Salcedo. MRI R shoulder shows partial RCT. She has not yet tried PT or NSAIDs. I will try this first. If not improved in 6 weeks, I will offer CSI. I will submit C-9 for R shoulder PT, and R shoulder CSI in 6 weeks. Medco 14 for no lifting >10lbs and no overhead for 2 months. [facility] 07-01-2022 Evaluation note Encounter Date Diagnosis Assessment Notes Jun, DDD (degenerative disc disease), cervical (ICD-10 - M50.30) Patients primary complaint today is progressing cervical pain with radiating symptoms into her upper extremities bilaterally. This appears to be well managed with a conservative regimen of Gabapentin 600 MG three times daily and I feel it would be reasonable to continue with this. She notes considerable benefit in regards to pain control and improved level of function without experiencing any mdedication side effects. OARRS was processed and reviewed, no discrepencies. I will take over management of her Gabapentin and provide a refill today. Patient signed a controlled substance contract and provided a saliva sample for toxassure screening. Additionally, I will obtain a copy of imaging reports from her previous pain management provider. We will follow up with the patient in one month, sooner if needed. Anatomy of spine discussed in detail with patient in regards to patients condition. Jun, Cervical spondylosis (ICD-10 - M47.812) Jun, Other Above note written by Leonid Lagunas MA, Chief Engineer [employer]. Edited and approved by Dr. Steven Herring MD. Medical decision making shows a new problem to me with further workup planned or suggested with the potential for extensive treatment options that were considered with the most applicable given this patient's situation as noted above. Treatment options considered include a combination of physical therapy approaches, pharmacologic management, and interventional procedures. Those most applicable to the patient were discussed at this time. Risk of complications and/or morbidity and mortality is high given that acute and chronic pain poses a threat to life and bodily function if undertreated, poorly treated or with failure to maintain adequate treatment and timely followup. Given the serious and fluctuating nature of pain with extensive consideration for whenever pain changes, there always remains the possibility of prolonged functional impairment requiring constant patient reassessment and high-level medical decision making. The amount and complexity of data reviewed is high given that patient labs, radiology reports, and other test were obtained, reviewed and summarized as applicable from the physician portal and/or outside medical records. Pertinent positive and negative findings were considered in medical decision-making. [facility] Other 08-24-2021 NoteOPERATIVE NOTE OPERATION DATE: 12-23-20 PRIMARY CARE PHYSICIAN: Dr. Bello ANESTHETIC:General LMA. PREOPERATIVE DIAGNOSIS:Left eustachian tube dysfunction. Left ear foreign body. POSTOPERATIVE DIAGNOSIS:Same as above, plus left chronic myringitis. PROCEDURE NAME:Removal of left ear foreign body, left myringotomy and tube with microdissection placement of a T-tube. COMPLICATIONS: None. FINDINGS: Grommet style tympanostomy tube on the inferior tympanic membrane. When removed there was granulation tissue medial to the tube but no perforation. PROCEDURE: The patient was identified in the holding area and taken back to the OR where she was placed in the supine position. After induction of general anesthesia the left ear was approached with the Otomicroscope and a pick used to tease the old tube away from the tympanic membrane. As noted above, there was granulation tissue medial to the tube. An anterior radial myringotomy was then performed and a modified Caceres T-tube was folded and inserted through the myringotomy and opened in the middle ear using microdissection. There was self-limited bleeding and the ear was suctioned until the bleeding was controlled. Ciprodex drops were then infused in the ear and the patient was awakened and taken to the Recovery Room in good condition. [facility] Signed and Approved by: DR LEDA CUELLAR 12/30/2020 08:04:00[facility] Diagnosis Women's annual routine gynecological examination documented in this encounter [facility] [employer] Work Phone: evaluation noteNo InformationNort Lamahui Other Evaluation note* Diagnosis Brachial plexus lesions Cervical spondylosis Cervical spondylosis without myelopathy Complex regional pain syndrome type 1 of right upper extremity Degeneration of cervical intervertebral disc Fibromyalgia Mylagia and myositis, unspecified Lateral epicondylitis, right elbow Other cervical disc displacement at C5-C6 level Severe major depression, single episode (HCC) Major depressive disorder, single episode, severe, without mention of psychotic behavior Sprain of ligaments of cervical spine, initial encounter Unspecified sprain of right shoulder joint, initial encounter documented in this encounter [employer] Phone: evaluation note* Diagnosis Metal foreign body in ear region documented in this encounter [employer] Phone: evaluation note* Diagnosis Brachial plexus lesions Cervical spondylosis Cervical spondylosis without myelopathy Complex regional pain syndrome type 1 of right upper extremity Degeneration of cervical intervertebral disc Fibromyalgia Mylagia and myositis, unspecified Lateral epicondylitis, right elbow Other cervical disc displacement at C5-C6 level Severe major depression, single episode (HCC) Major depressive disorder, single episode, severe, without mention of psychotic behavior Sprain of ligaments of cervical spine, initial encounter Unspecified sprain of right shoulder joint, initial encounter documented in this encounter [employer] Phone: evaluation note* Diagnosis ETD (Eustachian tube dysfunction), left- Primary Right ear impacted cerumen Impacted cerumen [facility] Diagnosis Foreign body of left ear, initial encounter- Primary [facility] Diagnosis ETD (Eustachian tube dysfunction), left- Primary Foreign body of left ear, initial encounter [facility] Diagnosis Acute otalgia, left- Primary [facility]* Diagnosis ETD (Eustachian tube dysfunction), left- Primary [facility] Diagnosis ETD (Eustachian tube dysfunction), left- Primary [facility] N[facility]ative - Reported* Type Description Date Medical History htn Medical History hyperlipidemia Medical History gerd Medical History anxiety-depression Medical History PTSD Medical History fibromyalgia Medical History mastoiditis Medical History aspergilliosis Surgical History cholecystectomy Surgical History thorasic outlet syndrome surger y Surgical History c-5-c6 discetomy Surgical History c section Surgical History appendectomy Surgical History tonsillectomy Surgical History eye surgery Surgical History neck fusion Surgical History rib removed Surgical History foot screw x2 Surgical History c secton Surgical History tube placement in ear Hospitalization History see above [facility] Other Summary Purpose Family History No Family History Records FoundNo Family History Records FoundNo Family History Records FoundNo Family History Records FoundNo Family History Records FoundNo Family History Records FoundNo Family History Records Found Advance Directives No Advanced Directives Records FoundDocuments on File Type Date Recorded Patient Kiln Tester Expl anation ACP-Advance Directive 08/23/2012 7:42 PM Documents on File Type Date Recorded Patient Kiln Tester Expl anation ACP-Advance Directive 08/23/2012 7:42 PM Reason for Referral Specialty Diagnoses / Procedures Referred By Contac t Referred To Contact Radiology Diagnoses Brachial plexus lesions Cervical spondylosis Complex regional pain syndrome type 1 of right upper extremity Degeneration of cervical intervertebral disc Fibromyalgia Lateral epicondylitis, right elbow Other cervical disc displacement at C5-C6 level Severe major depression, single episode (HCC) Sprain of ligaments of cervical spine, initial encounter Unspecified sprain of right shoulder joint, initial encounter G54.0 (ICD-10-CM) - Brachial plexus lesions Procedures MRI CERVICAL SPINE W WO CONTRAST CHG MRI SPINAL CANAL CERVICAL W/O & W/CONTR MATRL [id number] - CHG MRI SPINAL CANAL CERVICAL W/O & W/CONTR MATRL Dilan Salcedo MD [address] [place] [address] Referral ID Status Reason Start Date Expiration Date V isits Requested Visits Authorized [id number] Pending Review 09/13/2022 09/13/2023 1 1 Additional Source Comments INFORMATION SOURCE (unrecogn ized section and content) DATE CREATED AUTHOR 10/26/2017 [facility] DATE CREATED AUTHOR AUTHOR'S ORGANIZ ATION 01/05/2021 [facility] DATE CREATED AUTHOR AUTHOR'S ORGANIZ ATION 05/30/2021 [facility] [place] DATE CREATED AUTHOR AUTHOR'S ORGANIZ ATION 03/26/2023 [facility] DATE CREATED AUTHOR AUTHOR'S ORGANIZ ATION 06/04/2023 [facility] DATE CREATED AUTHOR AUTHOR'S ORGANIZ ATION 03/24/2024 [facility] DATE CREATED AUTHOR AUTHOR'S ORGANIZ ATION 06/29/2024 [facility] Special[facility] EPIC Care Teams (unrecognized sec tion and content) Composition Siding Worker Relationship Specialty Start Date End Date Jamal Saha MD [address] [place] [address] PCP - General 12/16/21 Composition Siding Worker Relationship Specialty Start Date End Date Jamal Saha MD [address] [place] [address] PCP - General 12/16/21 Composition Siding Worker Relationship Specialty Start Date End Date Jamal Saha MD [address] [address] PCP - General 12/16/21 Composition Siding Worker Relationship Specialty Start Date End Date Jamal Saha MD [address] [place] [address] PCP General 12/16/21 Composition Siding Worker Relationship Specialty Start Date End Date Jamal Saha MD [address] [place] [address] PCP General 12/16/21 Composition Siding Worker Relationship Specialty Start Date End Date Timur Dupree NP [address] [place] [address] Referring Physician Family Medicine 01/09/24 Composition Siding Worker Relationship Specialty Start Date End Date Timur Dupree NP [address] [place] [address] Referring Physician Family Medicine 01/09/24 Composition Siding Worker Relationship Specialty Start Date End Date Timur Dupree NP [address] [place] [address] Referring Physician Family Medicine 01/09/24 Composition Siding Worker Relationship Specialty Start Date End Date Timur Dupree NP [address] [place] [address] Referring Physician Family Medicine 01/09/24 Composition Siding Worker Relationship Specialty Start Date End Date Timur Dupree NP [address] [place] [address] Referring Physician Family Medicine 01/09/24 Composition Siding Worker Relationship Specialty Start Date End Date Timur Dupree NP [address] [place] [address] Referring Physician Family Medicine 01/09/24 Composition Siding Worker Relationship Specialty Start Date End Date Timur Dupree NP [address] [place] [address] Referring Physician Family Medicine 01/09/24 Composition Siding Worker Relationship Specialty Start Date End Date Timur Dupree NP [address] [place] [address] Referring Physician Family Medicine 01/09/24 Composition Siding Worker Relationship Specialty Start Date End Date Timur Dupree NP [address] [place] [address] Referring Physician Family Medicine 01/09/24 Tee Grove MD [address] [place] [address] Referring Physician Family Medicine 05/30/24 Composition Siding Worker Relationship Specialty Start Date End Date Timur Dupree NP [address] [place] [address] Referring Physician Family Medicine 01/09/24 Tee Grove MD [address] [place] [address] Referring Physician Family Medicine 05/30/24 Composition Siding Worker Relationship Specialty Start Date End Date Timur Dupree NP [address] [place] [address] Referring Physician Family Medicine 01/09/24 eTe Grove MD [address] [place] [address] Referring Physician Family Medicine 05/30/24 Composition Siding Worker Relationship Specialty Start Date End Date Timur Dupree NP [address] [place] [address] Referring Physician Family Medicine 01/09/24 Tee Grove MD [address] [place] [address] Referring Physician Family Medicine 05/30/24 Composition Siding Worker Relationship Specialty Start Date End Date Timur Dupree NP [address] [place] [address] Referring Physician Family Medicine 01/09/24 Tee Grove MD [address] [facility] [place] [address] Referring Physician Family Medicine 05/30/24 Composition Siding Worker Relationship Specialty Start Date End Date Timur Dupree NP [address] [place] [address] Referring Physician Family Medicine 01/09/24 Tee Grove MD [address] [place] [address] Referring Physician Family Medicine 05/30/24 REASON FOR VISIT (unrecogniz ed section and content) Specialty Diagnoses / Procedures Referred By Contac t Referred To Contact Radiology Diagnoses Brachial plexus lesions Cervical spondylosis Complex regional pain syndrome type 1 of right upper extremity Degeneration of cervical intervertebral disc Fibromyalgia Lateral epicondylitis, right elbow Other cervical disc displacement at C5-C6 level Severe major depression, single episode (HCC) Sprain of ligaments of cervical spine, initial encounter Unspecified sprain of right shoulder joint, initial encounter G54.0 (ICD-10-CM) - Brachial plexus lesions Procedures MRI CERVICAL SPINE W WO CONTRAST CHG MRI SPINAL CANAL CERVICAL W/O & W/CONTR MATRL [id number] - CHG MRI SPINAL CANAL CERVICAL W/O & W/CONTR Dilan Ortiz MD [address] [place] [id number] Referral ID Status Reason Start Date Expiration Date V isits Requested Visits Authorized [id number] Pending Review 09/13/2022 09/13/2023 1 1 Specialty Diagnoses / Procedures Referred By Lisa t Referred To Contact Radiology Diagnoses Brachial plexus lesions Cervical spondylosis Complex regional pain syndrome type 1 of right upper extremity Degeneration of cervical intervertebral disc Fibromyalgia Lateral epicondylitis, right elbow Other cervical disc displacement at C5-C6 level Severe major depression, single episode (HCC) Sprain of ligaments of cervical spine, initial encounter Unspecified sprain of right shoulder joint, initial encounter G54.0 (ICD-10-CM) - Brachial plexus lesions Procedures MRI SHOULDER RIGHT W WO CONTRAST CHG MRI ANY JT UPPER EXTREMITY W/O & W/CONTR MATRL [id number] - CHG MRI ANY JT UPPER EXTREMITY W/O & W/CONTR Dilan Ortiz MD [address] [place] [address] Referral ID Status Reason Start Date Expiration Date V isits Requested Visits Authorized [id number] Pending Review 09/13/2022 09/13/2023 1 1 Reason Comments Ear Problem Left ear is plugged up Reason Comments Ear Problem Clean ears Reason Comments Ear Problem 1 wk debridement Reason Comments Ear Problem Left ear discomfort, tube check Reason Comments Ear Problem 1 month check ears Reason Onset Date Comments Earache 06/22/2024 ear pressure,dizziness 06/22/2024 Reason Comments Ear Problem Ear pain FOR RECORDS PERTAINING TO PATIENTS WHO ARE OR HAVE BEEN ENROLLED IN A CHEMICAL DEPENDENCY/SUBSTANCEABUSE PROGRAM, SOME INFORMATION MAY BE OMITTED. This clinical summary was aggregated from multiple sources. Caution should be exercised in using it in the provision of clinical care. This summary normalizes information from multiple sources, and as a consequence, information in this document may materially change the coding, format and clinical context of patient data. In addition, data may be omitted in some cases. CLINICAL DECISIONS SHOULD BE BASED ON THE PRIMARY CLINICAL RECORDS. [facility] [employer] [facility]. provides no warranty or guarantee of the accuracy or completeness of information in this document.
[2024-07-12 07:03] LABS: Glucometer 126 mg/dL (74-106)
[2024-07-12] MEDS: LACTATED RINGER'S SOLUTION 1,000 ML 50 ML IV (07:29)
== END 2024-07-12 09:21 | disposition home or self-care (01) ==
PROVIDERS: Family Provider Internal Medicine; Visit Provider Otolaryngology
PROC: (CPT 69436; principal; 2024-07-12 08:00)
DX: H69.92 Unspecified Eustachian tube disorder, left ear (principal); E11.9 Type 2 diabetes mellitus without complications; Z90.49 Acquired absence of other specified parts of digestive tract; Z79.84 Long term (current) use of oral hypoglycemic drugs; J44.9 Chronic obstructive pulmonary disease, unspecified; E78.5 Hyperlipidemia, unspecified; I10 Essential (primary) hypertension; K21.9 Gastro-esophageal reflux disease without esophagitis
CPT/HCPCS: 69436; 36415; 82948; J1100; J2250; J2405; J2704